=== PATIENT | male | born 1965 | race Hispanic/Latino ===

== ENCOUNTER 2017-07-31 16:27 | Inpatient (IN) | payer SELFPAY ==
[2017-07-31 16:50] LABS: #Basophils 0.1 thou/uL (0.0-0.2); #Eosinphils 0.2 thou/uL (0.0-0.7); #Lymphocytes 2.5 thou/uL (1.20-3.40); #Monocytes 0.9 thou/uL (0.11-0.59); #Neutrophils 6.9 thou/uL (1.40-6.50); %Basophils 0.9 % (0.0-1.0); %Monocytes 8.4 % (0.0-10.0); %Neutrophils 64.7 % (42.0-75.0); Hemoglobin 16.1 g/dL (14.0-18.0); Mean Corpuscular HGB CONC 35.9 g/dL (32.0-36.0); Mean Corpuscular Hemoglobin 31.9 pg (27.0-31.0); Mean Corpuscular Volume 88.8 fl (80.0-94.0); Platelet Count 277 thou/uL (130-400); RBC Distribution Width 12.6 % (11.5-14.5); Red Blood Cell (RBC) Count 5.03 mill/uL (4.70-6.10); White Blood Cell (WBC) Count 10.6 thou/uL (4.8-10.8)
--- NOTE | 2017-07-31 17:07 | RAD ---
CHEST ONE VIEW: 07/31/17 HISTORY: 52-year-old male with history of chest pain. COMPARISON: 08/18/15. Monitor leads overlie the chest. Heart size is within normal limits. Minimal atherosclerosis of the a vipul. Old granulomatous disease. Stable linear and chronic changes in the lung bases. IMPRESSION: Minimal stable chronic lung changes in the basis. Old granulomatous disease. Atherosclerosis of the a vipul. No acute process. POS: [facility]
[2017-07-31 17:17] LABS: ALT (SGPT) 31 U/L (8-55); AST (SGOT) 28 U/L (5-34); Albumin 4.4 g/dL (3.5-5.0); Alkaline Phosphatase 133 U/L (40-150); Anion Gap 13 mmol/L (10-20); BUN (Urea Nitrogen) 23 mg/dL (8.4-25.7); Bilirubin, Total 0.4 mg/dL (0.2-1.2); CK (CPK) 226 U/L (30-200); Calc. Creatinine Clearance 0 mL/min (70-130); Calcium 9.5 mg/dL (7.8-10.44); Carbon Dioxide 22 mmol/L (22-29); Chloride 106 mmol/L (98-107); Estimated GFR-MDRD 86; Glucose 104 mg/dL (70-105); Lipase 20 U/L (8-78); Potassium 4.3 mmol/L (3.5-5.1); Protein, Total 8.4 g/dL (6.0-8.3); Sodium 137 mmol/L (136-145)
[2017-07-31] MEDS ORDERED: Nitroglycerin 2% Ointment 1 INCH/1 GM Packet ONE (17:17)
[2017-07-31 17:34] LABS: CKMB 4.2 ng/mL (0-6.6); Troponin I 0.071 ng/mL (< 0.028)
[2017-07-31] MEDS ORDERED: EPINEPHrine 1 MG/ML AMP ONE (18:02)
[2017-07-31] MEDS ORDERED: methylPREDNISolone Sod Succ/PF 125 MG/2 ML VIAL ONE (18:02)
[2017-07-31] MEDS ORDERED: Enoxaparin Sodium 80 MG/0.8 ML SYRINGE ONE (19:02)
[2017-07-31] MEDS ORDERED: Morphine 4 MG/ML VIAL ONE (19:05)
[2017-07-31] MEDS ORDERED: Morphine 4 MG/ML VIAL SLOW IVP PRN (19:18)
[2017-07-31 20:09] LABS: Hemoglobin 15.8 g/dL (14.0-18.0); Mean Corpuscular HGB CONC 36.3 g/dL (32.0-36.0); Mean Corpuscular Hemoglobin 32.5 pg (27.0-31.0); Mean Corpuscular Volume 89.4 fl (80.0-94.0); Mean Platelet Volume 6.9 fL (7.4-10.4); Platelet Count 282 thou/uL (130-400); RBC Distribution Width 12.7 % (11.5-14.5); Red Blood Cell (RBC) Count 4.85 mill/uL (4.70-6.10); White Blood Cell (WBC) Count 8.9 thou/uL (4.8-10.8)
[2017-07-31 20:17] LABS: Anion Gap 16 mmol/L (10-20); BUN (Urea Nitrogen) 23 mg/dL (8.4-25.7); Calc. Creatinine Clearance 0 mL/min (70-130); Calcium 9.4 mg/dL (7.8-10.44); Carbon Dioxide 19 mmol/L (22-29); Chloride 107 mmol/L (98-107); Estimated GFR-MDRD 90; Glucose 140 mg/dL (70-105); Potassium 4.2 mmol/L (3.5-5.1); Sodium 138 mmol/L (136-145)
[2017-07-31 20:18] LABS: Band 1 % (5-11); Eosinophils 3 % (0-10); Lymphocytes 28 % (21-51); MDiff Complete? YES; Monocytes 5 % (0-10); Neutrophil 63 % (42-75); PLT Morphology Comment Appears Adequate; RBC Morphology Normal
[2017-07-31 20:30] LABS: CKMB 11.1 ng/mL (0-6.6); Troponin I 0.378 ng/mL (< 0.028)
[2017-07-31] MEDS ORDERED: Enoxaparin Sodium 80 MG/0.8 ML SYRINGE SC SCH (21:00)
[2017-07-31] MEDS: Famotidine 20 MG TAB PO SCH (22:38)
[2017-07-31] MEDS: Lisinopril 20 MG TAB PO SCH (22:38)
[2017-07-31] MEDS: Nicotine 14 MG PATCH TD SCH (22:44)
--- NOTE | 2017-07-31 23:22 | HP ---
PRIMARY CARE PHYSICIAN: [facility]. CHIEF COMPLAINT: Chest pain. HISTORY OF PRESENT ILLNESS: Patient is a very pleasant 52-year-old male with a history of hypertensi on, hypothyroidism and smoking, who presents to the hospital with complaints of chest pain. The rebecca ent states that he has been having chest pain for the past 2-3 months. However, today his chest pain intensity worsened. Patient denies any nausea and vomiting associated with the chest pain. Patient states that his chest pain is to the left sternal area of his chest, does not radiate to his jaw or bilateral extremities. The patient does complain of shortness of breath on exertion. The patient st ates that normally when he lifts heavy objects and walks around, he gets short of breath and also sta rts having chest tightness and when he stops, the chest pain and the shortness of breath improves. P atient denies any lower extremity swelling. However, he states that he does have PND positive. The patient's is at the bedside and states that he does snore at night and also stops breathing at t imes during the night. The patient stated that today he was helping his granddaughter to built lemon kerrie stand when he started feeling chest tightness which increased in intensity, followed by shortness of breath which made him come to the ER for further evaluation. Also, the patient stated that he wa s supposed to see a special needs librarian as an outpatient; however, could not afford the copay. PAST MEDICAL HISTORY: 1. Hypertension. 2. Hypothyroidism. 3. Hepatitis C. 4. Hepatitis A, looks like it is chronic. PAST SURGICAL HISTORY: He had I&D of his right lower foot. FAMILY HISTORY: His mother with brain tumor, also had some heart disease; however, his b iological brother at the age of 52 with a heart attack. The patient's stepbrother had a CABG at the age of 49-50. He has other two brothers, which he does not know their history. HOME MEDICATIONS: Are as the following; he takes lisinopril 20 mg daily, ranitidine 150 mg daily, as pirin 81 mg daily, Synthroid 0.025 mg daily. He also takes gemfibrozil 600 mg one b.i.d. ALLERGIES: He has no known drug allergies. SOCIAL HISTORY: He does smoke a pack a day. Denies any alcohol use currently; however, did drink in the past. He does have a history of cocaine or substance abuse in the past; however, currently he s tates he is drug free. REVIEW OF SYSTEMS: The following complete review of systems was negative, unless otherwise mentioned in the HPI or below: Constitutional: Weight loss or gain, ability to conduct usual activities. Skin: Rash, itching. Eyes: Double vision, pain. ENT/Mouth: Nose bleeding, neck stiffness, pain, tenderness. Cardiovascular: Palpitations, dyspnea on exertion, orthopnea. Respiratory: Shortness of breath, wheezing, cough, hemoptysis, fever or night sweats. Gastrointestinal: Poor appetite, abdominal pain, heartburn, nausea, vomiting, constipation, or diarr hea. Genitourinary: Urgency, frequency, dysuria, nocturia. Musculoskeletal: Pain, swelling. Neurologic/Psychiatric: Anxiety, depression. Allergy/Immunologic: Skin rash, bleeding tendency. All negative except for the ones mentioned in the HPI. PHYSICAL EXAMINATION: VITAL SIGNS: Patient's initial temperature was 98.8, respirations 20, pulse was 92, his initial bloo d pressure was 202/112; however, after recheck was 142/82. GENERAL: He is awake, alert, oriented x3, does not appear in distress. CARDIOVASCULAR: S1, S2 present. No murmurs, rubs or gallops. LUNGS: Clear to auscultation, rhonchi or wheezes noted. ABDOMEN: Soft, obese. Bowel sounds are present x2. No hepatomegaly or splenomegaly noted. Chest w all unable to reciprocate pain upon palpation. EXTREMITIES: No edema. Pedal pulses are present x2. SKIN: Patient has multiple tattoos all over. LABORATORY DATA AND IMAGING DATA: Laboratory results are as the following; WBCs of 10.6, hemoglobin 16.1, hematocrit 44.7, and platelets of 277. Chemistry araiza sodium of 137, potassium of 4.3, creatin ine 0.92, BUN of 23. His initial troponin 0.071. His D-dimer was negative. EKG, no ST elevation or depression noted. Chest x-ray no acute processes noted. ASSESSMENT AND PLAN: The patient is a very pleasant 52-year-old male who presents to the hospital wi th chest pain. 1. Oea-AP-hgdbruf elevation myocardial infarction. We will trend troponins additional x2, we will s tart the patient on Lovenox b.i.d. 2. Start the patient aspirin. 3. Most likely we will do a stress test in the morning. However, if troponins trying to worsen, may consult Cardiology. We will check patient's lipid level and we will start patient on statin. The p rojelio stated that he did have a stress test about 2 or 3 years ago which was negative at our hospita l. 4. Hypertension. The patient states he is compliant with his blood pressure medications. We will s ee if we can titrate his meds based on his blood pressure. 5. Smoking, patient advised against smoking cessation. 6. Hypothyroidism. We will continue the patient's Synthroid.
[2017-07-31 23:23] LABS: Troponin I 0.931 ng/mL (< 0.028)
[2017-07-31 23:50] VITALS: BMI 33.3
[2017-08-01] MEDS: Levothyroxine Sodium 25 MCG TAB PO SCH (05:51)
[2017-08-01] MEDS: Nitroglycerin 0.4 MG TAB (25 Tab Bottle) PO PRN (05:52)
[2017-08-01 06:39] LABS: Cardiac Risk 6.1 (Less than 4.5); Cholesterol 166 mg/dl (< 200 Desired); HDL Cholesterol 27 mg/dL (>60 Neg Risk); Triglycerides 609 mg/dL (Less than 150)
[2017-08-01] MEDS: Enoxaparin Sodium 80 MG/0.8 ML SYRINGE SC SCH ×2 (08:53→20:51)
[2017-08-01] MEDS: Gemfibrozil 600 MG TAB PO SCH ×2 (08:53→17:03)
[2017-08-01] MEDS: Famotidine 20 MG TAB PO SCH ×2 (08:53→20:50)
[2017-08-01] MEDS: Lisinopril 20 MG TAB PO SCH ×2 (08:53→20:50)
[2017-08-01] MEDS: Aspirin 325 MG TAB PO SCH (08:53)
--- NOTE | 2017-08-01 12:27 | PDOC.PN ---
- Subjective Encounter Start Date: 08/01/17 Encounter Start Time: 08:20 Pt seen for followup re: NSTEMI. Denies chest pain, reports not sleeping well. Denies fevers or chills. - Objective MAR Reviewed: Yes Vital Signs & Weight: Vital Signs (12 hours) Temp Pulse Resp BP Pulse Ox 08/01/17 11:10 98.4 F 77 16 136/84 97 08/01/17 07:20 98.4 F 78 16 133/74 97 08/01/17 05:22 98.3 F 86 20 124/73 96 Weight Weight 188 lb 8 oz Result Diagrams: 07/31/17 19:52 07/31/17 19:52 EKG Reviewed by me: Yes (tele: NSR) Phys Exam - Physical Examination Constitutional: NAD HEENT: moist MMs, sclera anicteric, oral pharynx no lesions, 2+ tonsils Neck: no nodes, no JVD, supple, full ROM Respiratory: no wheezing, no rales, no rhonchi, clear to auscultation bilateral Cardiovascular: RRR, no rub S1, S2 Gastrointestinal: soft, non-tender, no distention, positive bowel sounds Neurological: moves all 4 limbs Psychiatric: normal affect, A&O x 3 Dx/Plan (1) NSTEMI (non-ST elevated myocardial infarction) Code(s): I21.4 - NON-ST ELEVATION (NSTEMI) MYOCARDIAL INFARCTION Status: Acute Comment: continue aspirin, enoxaparin (2) Insomnia Code(s): G47.00 - INSOMNIA, UNSPECIFIED Status: Acute Comment: start melatonin PRN (3) HLD (hyperlipidemia) Code(s): E78.5 - HYPERLIPIDEMIA, UNSPECIFIED Status: Chronic Comment: continue gemfibrozil, start statin (4) HTN (hypertension) Code(s): I10 - ESSENTIAL (PRIMARY) HYPERTENSION Status: Chronic Comment: Monitor vital signs, titrate antihypertensives as needed (5) Tobacco abuse Code(s): Z72.0 - TOBACCO USE Status: Chronic Comment: counseled re: tobacco cessation, continue nicotine replacement therapy - Plan * . Review of Systems - Review of Systems Constitutional: other (Insomnia). negative: fever, chills, sweats, weakness, malaise Respiratory: negative: Cough, Shortness of Breath, SOB with Excertion, Pleuritic Pain, Wheezing Cardiovascular: negative: chest pain, palpitations, orthopnea, paroxysmal nocturnal dyspnea, edema, light headedness Gastrointestinal: negative: Nausea, Vomiting, Abdominal Pain, Diarrhea, Constipation, Melena, Hematochezia Genitourinary: negative: Dysuria, Frequency, Incontinence, Hematuria, Retention Skin: negative: Rash, Lesions, Armond, Bruising - Medications/Allergies Allergies/Adverse Reactions: Allergies Allergy/AdvReac Type Severity Reaction Status Date / Time No Known Drug Allergies Allergy Verified 08/19/15 00:26 Medications: Current Medications Aspirin (Aspirin) 325 mg PO DAILY [facility] Last Admin: 08/01/17 08:53 Dose: 325 mg Enoxaparin Sodium (Lovenox) 70 mg SC 0900,2100 [facility] Last Admin: 08/01/17 08:53 Dose: 70 mg Famotidine (Pepcid) 20 mg PO BID [facility] Last Admin: 08/01/17 08:53 Dose: 20 mg Gemfibrozil (Lopid) 600 mg PO BID[facility] Last Admin: 08/01/17 08:53 Dose: 600 mg Levothyroxine Sodium (Synthroid) 25 mcg PO 0600 [facility] Last Admin: 08/01/17 05:51 Dose: 25 mcg Lisinopril (Zestril) 20 mg PO BID [facility] Last Admin: 08/01/17 08:53 Dose: 20 mg Melatonin (Melatonin) 3 mg PO HSPRN PRN PRN Reason: Insomnia Morphine Sulfate (Morphine) 2 mg SLOW IVP Q4H PRN PRN Reason: Chest Pain Nicotine (Nicoderm Patch) 14 mg TD Q24HR [facility] Last Admin: 07/31/17 22:44 Dose: 14 mg Nitroglycerin (Nitrostat) 0.4 mg PO Q5MIN PRN PRN Reason: Chest Pain Last Admin: 08/01/17 05:52 Dose: 0.4 mg Sodium Chloride (Flush - Normal Saline) 10 ml IVF Q12HR [facility] Sodium Chloride (Flush - Normal Saline) 10 ml IVF PRN PRN PRN Reason: Saline Flush
[2017-08-01 16:34] LABS: Medtox Reader # READER 4
[2017-08-01 16:35] LABS: Amphetamine Not Detected (NotDetected); Barbiturates Screen Not Detected (NotDetected); Benzodiazepine Screen Not Detected (NotDetected); Cocaine Metabolite Screen Not Detected (NotDetected); Medtox Control Line Valid? VALID (VALID); Methadone Not Detected (NotDetected); Methamphetamine Not Detected (NotDetected); Opiate Screen Detected (NotDetected); Oxycodone Screen Not Detected (NotDetected); Phencyclidine (PCP) Not Detected (NotDetected); THC/Cannabinoid Screen Not Detected (NotDetected); Tricyclic Screen Detected (NotDetected)
--- NOTE | 2017-08-01 16:59 | CON ---
DATE OF CONSULTATION: 08/01/2017 REASON FOR CONSULTATION: NSTEMI. HISTORY OF PRESENT ILLNESS: Mr. Kearns is a very pleasant 52-year-old gentleman who comes t o the hospital for complaints of chest pain. He was ruled in with a troponin going into the positive range, so Cardiology is being consulted for this. He tells me that he has noted for the last 2-3 mo nt that any activity that he does outside within 5 or 10 minutes, he is going to get short-winded a nd feel chest tightness, so he has to stop. He has not been doing a lot of work outside due to this. Yesterday, he was helping his daughter build lemonade stand and felt the chest tightness which was worse than before and only got worse, so he decided to come in for further evaluation. Currently, he is chest pain free. PAST MEDICAL HISTORY: 1. Hypertension. 2. Hypothyroidism. 3. Hepatitis C. 4. Hepatitis A. PAST SURGICAL HISTORY: Right lower foot incision and drainage. OUTPATIENT MEDICATIONS: Include, 1. Lisinopril 20 mg a day. 2. Ranitidine 150 mg daily. 3. Aspirin 81 a day. 4. Synthroid 25 mcg a day. 5. Gemfibrozil 600 mg b.i.d. ALLERGIES: No known drug allergies. FAMILY HISTORY: Brother had IN in his late 40s. Another brother at age 52 of a heart attack. SOCIAL HISTORY: Smokes a pack a day. No alcohol use recently, but he did in the past. He does have a history of cocaine and substance abuse in the past, but none for the last 2 years. REVIEW OF SYSTEMS: A 12-point review of systems was done and is all negative unless stated in the hi story of present illness. PHYSICAL EXAMINATION: VITAL SIGNS: Temperature 98.4, pulse 77, respiration rate 16, satting 97% on room air, blood pressur e 136/84. GENERAL: Awake, alert, oriented x3, in no distress. HEENT: Normocephalic, atraumatic. NECK: Supple. LUNGS: Clear. CARDIOVASCULAR: S1, S2, no S3, S4, no murmurs or rubs. ABDOMEN: Soft, positive bowel sounds. EXTREMITIES: No edema. SKIN: Warm and dry. LABORATORY WORK: Reviewed. CBC is unremarkable. Coags, D-dimer is less than assay limit. Chemistr ies are unremarkable. GFR is above 90. Glucose was 140. Troponin went from 0.07 to 0.37 to 0.93. CK-MB went from 4.2-11.1. BNP was 11.6, triglycerides of 609, cholesterol total of 166, LDL cannot b e measured given the high triglycerides and HDL of 27. Lipase was 20. Albumin of 4.4. Echocardiogram from earlier today was reviewed, EF of 60-65%, 1/3 diastolic dysfunction, mild MR, mil d TR. ASSESSMENT AND PLAN: 1. Non-ST elevation myocardial infarction. 2. Tobacco abuse. 3. Hypertension. PLAN: Further risk stratification with heart catheterization is warranted. I spoke with him at [facility] about the risks and benefits of the procedure, risks including, but not limited to stroke, [place], vickey th, bleeding and need for blood transfusion, limb loss, organ loss, contrast reactions, renal insuffi ciency from contrast. Patient understands and verbalized understanding of this and agrees to proceed . Bare metal stents if needed given poor access to care. Further recommendation results of coronary angiogram.
[2017-08-01] MEDS: Atorvastatin Calcium 20 MG TAB PO SCH (20:50)
[2017-08-01] MEDS: Nicotine 14 MG PATCH TD SCH (20:55)
[2017-08-01] MEDS: Melatonin 3 MG TAB PO PRN (20:55)
[2017-08-02] MEDS: Levothyroxine Sodium 25 MCG TAB PO SCH (05:25)
[2017-08-02] MEDS ORDERED: Iopamidol 370 76% 100 ML VIAL ONE (06:47)
[2017-08-02] MEDS: Lisinopril 20 MG TAB PO SCH (08:43)
[2017-08-02] MEDS: Gemfibrozil 600 MG TAB PO SCH ×2 (08:44→17:59)
[2017-08-02] MEDS: Famotidine 20 MG TAB PO SCH ×2 (08:44→21:53)
[2017-08-02] MEDS: Enoxaparin Sodium 80 MG/0.8 ML SYRINGE SC SCH ×2 (08:44→21:52)
[2017-08-02] MEDS: Nitroglycerin 0.4 MG TAB (25 Tab Bottle) PO PRN ×3 (09:33→15:32)
[2017-08-02] MEDS ORDERED: HEPATITIS B VIRUS VACCINE IM SCH (10:15)
[2017-08-02] MEDS ORDERED: Lidocaine 1% (PF) 30 ML VIAL ONE (10:22)
[2017-08-02] MEDS: Aspirin 325 MG TAB PO SCH (10:26)
[2017-08-02] MEDS ORDERED: Midazolam HCl 2 mg/2 ml Vial ONE (10:57)
[2017-08-02] MEDS ORDERED: Fentanyl 100 MCG/2 ML VIAL ONE (10:57)
--- NOTE | 2017-08-02 13:18 | PDOC.PN ---
- Subjective Encounter Start Date: 08/02/17 Encounter Start Time: 09:20 Pt seen for followup re: NSTEMI. Denies chest pain, shortness of breath, fevers or chills. - Objective MAR Reviewed: Yes Vital Signs & Weight: Vital Signs (12 hours) Temp Pulse Resp BP BP BP Pulse Ox 08/02/17 11:38 98.2 F 81 17 108/75 96 08/02/17 08:43 126/73 08/02/17 08:37 97.4 F L 83 18 113/80 96 Weight Weight 188 lb 8 oz Result Diagrams: 07/31/17 19:52 07/31/17 19:52 Phys Exam - Physical Examination Obesity HEENT: moist MMs, sclera anicteric, oral pharynx no lesions, 2+ tonsils Neck: supple Respiratory: no wheezing, no rales, no rhonchi, clear to auscultation bilateral Cardiovascular: RRR, no rub S1, S2, reg Gastrointestinal: soft, non-tender, no distention, positive bowel sounds Neurological: moves all 4 limbs Psychiatric: normal affect, A&O x 3 Dx/Plan (1) NSTEMI (non-ST elevated myocardial infarction) Code(s): I21.4 - NON-ST ELEVATION (NSTEMI) MYOCARDIAL INFARCTION Status: Acute Comment: continue aspirin, enoxaparin. For cath today (2) Insomnia Code(s): G47.00 - INSOMNIA, UNSPECIFIED Status: Acute Comment: continue PRN melatonin (3) HLD (hyperlipidemia) Code(s): E78.5 - HYPERLIPIDEMIA, UNSPECIFIED Status: Chronic Comment: continue gemfibrozil and statin (4) HTN (hypertension) Code(s): I10 - ESSENTIAL (PRIMARY) HYPERTENSION Status: Chronic Comment: titrate antihypertensives as needed (5) Tobacco abuse Code(s): Z72.0 - TOBACCO USE Status: Chronic Comment: continue nicotine replacement therapy - Plan * . Review of Systems - Review of Systems Respiratory: negative: Cough, Shortness of Breath, SOB with Excertion, Pleuritic Pain, Wheezing Cardiovascular: negative: chest pain, palpitations, orthopnea, paroxysmal nocturnal dyspnea, edema, light headedness Gastrointestinal: negative: Nausea, Vomiting, Abdominal Pain, Diarrhea, Constipation, Melena, Hematochezia Musculoskeletal: Back Pain. negative: Neck Pain, Shoulder Pain, Arm Pain, Hand Pain, Leg Pain, Foot Pain Skin: negative: Rash, Lesions, Armond, Bruising Neurological: negative: Weakness, Numbness, Incoordination, Change in Speech, Confusion, Seizures - Medications/Allergies Allergies/Adverse Reactions: Allergies Allergy/AdvReac Type Severity Reaction Status Date / Time No Known Drug Allergies Allergy Verified 08/19/15 00:26 Medications: Current Medications Aspirin (Aspirin) 325 mg PO DAILY [facility] Last Admin: 08/02/17 10:26 Dose: Not Given Atorvastatin Calcium (Lipitor) 20 mg PO HS [facility] Last Admin: 08/01/17 20:50 Dose: 20 mg Enoxaparin Sodium (Lovenox) 70 mg SC 0900,2100 [facility] Last Admin: 08/02/17 08:44 Dose: Not Given Famotidine (Pepcid) 20 mg PO BID [facility] Gemfibrozil (Lopid) 600 mg PO BIDAC [facility] Hepatitis B Vaccine (Engerix-B 20 Mcg/Ml Vial) 20 mcg IM ONE [facility] Stop: 08/02/17 21:00 Levothyroxine Sodium (Synthroid) 25 mcg PO DAILY [facility] Lisinopril (Zestril) 10 mg PO DAILY [facility] Melatonin (Melatonin) 3 mg PO HSPRN PRN PRN Reason: Insomnia Last Admin: 08/01/17 20:55 Dose: 3 mg Morphine Sulfate (Morphine) 2 mg SLOW IVP Q4H PRN PRN Reason: Chest Pain Nicotine (Nicoderm Patch) 14 mg TD Q24HR [facility] Last Admin: 08/01/17 20:55 Dose: 14 mg Nitroglycerin (Nitrostat) 0.4 mg PO Q5MIN PRN PRN Reason: Chest Pain Last Admin: 08/02/17 09:33 Dose: 0.4 mg Sodium Chloride (Flush - Normal Saline) 10 ml IVF Q12HR [facility] Last Admin: 08/02/17 08:44 Dose: 10 ml Sodium Chloride (Flush - Normal Saline) 10 ml IVF PRN PRN PRN Reason: Saline Flush
[2017-08-02] MEDS ORDERED: Acetaminophen/Codeine 30-300mg Tablet PO PRN (13:25)
[2017-08-02] MEDS ORDERED: Sodium Chloride 0.9% 200 ML IV SCH (13:30)
[2017-08-02] MEDS ORDERED: Sodium Chloride 0.9% 1,000 ML IV SCH (13:30)
[2017-08-02] MEDS: traMADol HCl 50 MG TAB PO PRN ×2 (15:11→21:58)
[2017-08-02] MEDS ORDERED: Non-Formulary Item 1 EACH (Ranitidine Hcl [Ranitidine Hcl] 150 MG) PO SCH (21:00)
[2017-08-02] MEDS: Nicotine 14 MG PATCH TD SCH (21:53)
[2017-08-02] MEDS: Atorvastatin Calcium 20 MG TAB PO SCH (21:53)
[2017-08-02] MEDS: Melatonin 3 MG TAB PO PRN (21:58)
[2017-08-03] MEDS ORDERED: [UNRECOGNIZED DRUG - REMARK] FS SCH (08:10)
[2017-08-03] MEDS: Gemfibrozil 600 MG TAB PO SCH ×2 (08:33→18:07)
[2017-08-03] MEDS: Lisinopril 10 MG TAB PO SCH (08:33)
[2017-08-03] MEDS: Aspirin 325 MG TAB PO SCH (08:33)
[2017-08-03] MEDS: Famotidine 20 MG TAB PO SCH ×2 (08:33→20:42)
[2017-08-03] MEDS: Enoxaparin Sodium 80 MG/0.8 ML SYRINGE SC SCH ×2 (08:34→20:42)
[2017-08-03] MEDS ORDERED: Levothyroxine Sodium 25 MCG TAB PO SCH (09:00)
[2017-08-03] MEDS ORDERED: Lisinopril 10 MG TAB PO SCH (09:00)
--- NOTE | 2017-08-03 10:31 | CON ---
DATE OF CONSULTATION: 08/03/2017 REQUESTING PHYSICIAN: Dr. Sheffield, Primary Care [facility]. CHIEF COMPLAINT: Chest pain. HISTORY OF PRESENT ILLNESS: The patient is a 52-year-old man with hypertension and strongly positive family history of premature coronary disease. For 2-3 months, he has been having exertiona l chest pain with mild exertion. Over the weekend, he was helping his granddaughter to build a lemon kerrie stand and while he hit it from her, he began having chest pain that was more severe and more prot racted than typical, and when he was through, he presented to the emergency. By then, he was beginni ng to have some shortness of breath and while his initial troponin was normal, his follow up troponin was positive. He has had an uncomplicated post-infarction course. PAST MEDICAL HISTORY: Significant for hypertension, hypothyroidism, hepatitis C and by report chroni c hepatitis A. HOME MEDICATIONS: Ranitidine 150 mg b.i.d., Synthroid 25 mcg a day, gemfibrozil 600 mg b.i.d., baby aspirin a day, lisinopril 120 mg a day, Motrin 600 mg b.i.d. and he is undergoing hepatitis B vaccina tions and here he has been started on adult aspirin a day, Lipitor 20 mg at bedtime in addition to hi s gemfibrozil, Pepcid 20 mg b.i.d., he has been continued on Synthroid. His lisinopril has been put 10 mg a day. He is on a 70 mg b.i.d. of Lovenox and he is on Nicoderm patch. SOCIAL HISTORY: The patient is a long-term smoker. He has past history of abuse of cocaine, methamp hetamines and marijuana. He denies use of opioids. FAMILY HISTORY: Significant for his father dying at age 52 of heart attack. The patient has multipl e siblings with coronary artery disease, one of whom is in the last couple of years undergone coronar y bypass surgery. The patient denies any medical allergies. REVIEW OF SYSTEMS: Negative for any transient eye, speech, facial or extremity symptoms to suggest T IAs. Negative for any shortness of breath other than that associated with his current presentation. PHYSICAL EXAMINATION: GENERAL: He is a lawton appearing man with multiple tattoos. VITAL SIGNS: Heart rate is 81, blood pressure 108/75, temperature 98.2, he stands 5 foot 3 inches ta ll and weighs 188.5 pounds. HEENT: He has no xanthelasma. NECK: No JVD, no carotid bruits. CHEST: Clear to auscultation. He has regular rate and rhythm without obvious murmur or gallop. ABDOMEN: Soft and nontender. EXTREMITIES: He has easily palpable radial, dorsalis pedis, and posterior tibial pulses bilaterally. The patient states that he is right hand dominant. His left hand has normal Pranay's test. He has no obvious varicosities. No clubbing, cyanosis or edema. NEUROLOGIC: Grossly nonfocal. IMAGING DATA AND LABORATORY DATA: His chest x-ray showed some mild edema. Laboratory exam showed he moglobin of 16.1, white count of 10.6 and platelets 277,000. Electrolytes are normal. Glucose 104, BUN 23, creatinine 0.92, bilirubin 0.4, alkaline phosphatase 133, AST 28, ALT 31, protein 8.4, albumi n 4.4, calcium 9.5. Initial CPK was 226, MB was 4.2 and troponin 0.71 with BNP of 11.6. Follow up t roponin about 3 hours later was 0.378 and then 3 hours after that was 0.931. Fasting lipids showed t riglyceride of 609 and total cholesterol of 166, HDL was 27. LDL determination was not done because of interference from the high triglycerides. His cardiac catheterization shows what appears to be a right dominant system with an occluded right and left to right filling of diseased distal vessel. It is not entirely clear whether it is posterolateral or posterior descending branch that is filling. He has a very high grade ostial LAD lesion and a couple of approximately diseased diagonals that are isolated by mid LAD lesion. One of those diagonals seems reasonable size, but the other seems pretty small. Has about a 70%-80% lesion and a modest sized OM1 and a long 20% or 30% lesion in the circum flex proper leading to a much larger distal OMs, LVEF is around 70%. Aortic pressure was 104/66 with a mean of 85 and 112/71 with a mean of 90. LV pressures were 104/4 with an EDP of 12 and 108/4 with an EDP of 14 respectively. IMPRESSION AND RECOMMENDATIONS: Three-vessel coronary artery disease with the most compelling issue being a very high grade ostial LAD lesion. We will plan on surgical revascularization. I have discu ssed with patient and his family revascularization options including radial artery harvest.
--- NOTE | 2017-08-03 12:42 | PDOC.PN ---
- Subjective Encounter Start Date: 08/03/17 Encounter Start Time: 08:20 Pt seen for followup re: NSTEMI. Denies chest pain, shortness of breath, fevers or chills. - Objective Vital Signs & Weight: Vital Signs (12 hours) Temp Pulse Resp BP BP Pulse Ox 08/03/17 12:27 97.7 F 79 17 158/98 H 97 08/03/17 08:35 98.1 F 83 15 131/85 94 L 08/03/17 08:33 126/73 08/03/17 03:52 98.4 F 82 18 128/76 Weight Weight 188 lb 8 oz Result Diagrams: 08/04/17 15:58 08/04/17 15:58 Phys Exam - Physical Examination Obese HEENT: moist MMs, sclera anicteric, oral pharynx no lesions, 2+ tonsils Neck: no nodes, no JVD, supple, full ROM Respiratory: no wheezing, no rales, no rhonchi, clear to auscultation bilateral Cardiovascular: RRR, no rub S1, S2 Gastrointestinal: soft, non-tender, no distention, positive bowel sounds Neurological: moves all 4 limbs Psychiatric: normal affect, A&O x 3 Deviation from normal: tattoos Dx/Plan (1) NSTEMI (non-ST elevated myocardial infarction) Code(s): I21.4 - NON-ST ELEVATION (NSTEMI) MYOCARDIAL INFARCTION Status: Acute Comment: s/p CABG for multivessel CAD (2) HLD (hyperlipidemia) Code(s): E78.5 - HYPERLIPIDEMIA, UNSPECIFIED Status: Chronic Comment: continue statin and gemfibrozil (3) Tobacco abuse Code(s): Z72.0 - TOBACCO USE Status: Chronic Comment: continue nicotine replacement therapy (4) HTN (hypertension) Code(s): I10 - ESSENTIAL (PRIMARY) HYPERTENSION Status: Chronic Comment: BP on lower side at this time, titrate antihypertensives as needed (5) Insomnia Code(s): G47.00 - INSOMNIA, UNSPECIFIED Status: Acute Comment: continue PRN melatonin - Plan * . Review of Systems - Review of Systems Constitutional: negative: fever, chills, sweats, weakness, malaise Respiratory: negative: Cough, Shortness of Breath, SOB with Excertion, Pleuritic Pain, Wheezing Cardiovascular: negative: chest pain, palpitations, orthopnea, paroxysmal nocturnal dyspnea, edema, light headedness Skin: negative: Rash, Lesions, Armond, Bruising Neurological: negative: Weakness, Numbness, Incoordination, Change in Speech, Confusion, Seizures - Medications/Allergies Allergies/Adverse Reactions: Allergies Allergy/AdvReac Type Severity Reaction Status Date / Time No Known Drug Allergies Allergy Verified 08/19/15 00:26 Medications: Current Medications Acetaminophen/Codeine Phosphate (Tylenol #3) 1 tab PO Q4H PRN PRN Reason: Mild Pain (1-3) Stop: 08/04/17 08:30 Aspirin (Aspirin) 325 mg PO DAILY [facility] Stop: 08/04/17 08:30 Last Admin: 08/03/17 08:33 Dose: 325 mg Atorvastatin Calcium (Lipitor) 20 mg PO HS [facility] Stop: 08/04/17 08:30 Last Admin: 08/02/17 21:53 Dose: 20 mg Enoxaparin Sodium (Lovenox) 70 mg SC 0900,2100 [facility] Stop: 08/04/17 08:00 Last Admin: 08/03/17 08:34 Dose: 70 mg Famotidine (Pepcid) 20 mg PO BID [facility] Stop: 08/04/17 08:30 Last Admin: 08/03/17 08:33 Dose: 20 mg Gemfibrozil (Lopid) 600 mg PO BIDAC [facility] Stop: 08/04/17 08:30 Last Admin: 08/03/17 08:33 Dose: 600 mg Levothyroxine Sodium (Synthroid) 25 mcg PO DAILY [facility] Stop: 08/04/17 08:30 Last Admin: 08/03/17 08:33 Dose: 25 mcg Lisinopril (Zestril) 10 mg PO DAILY [facility] Last Admin: 08/03/17 08:33 Dose: 10 mg Melatonin (Melatonin) 3 mg PO HSPRN PRN PRN Reason: Insomnia Stop: 08/04/17 08:30 Last Admin: 08/02/17 21:58 Dose: 3 mg Miscellaneous Information (Communication Order-Pharmacy) 1 each FS ONE [facility] Stop: 08/04/17 12:00 Morphine Sulfate (Morphine) 2 mg SLOW IVP Q4H PRN PRN Reason: Chest Pain Stop: 08/04/17 08:30 Nicotine (Nicoderm Patch) 14 mg TD Q24HR [facility] Stop: 08/04/17 08:30 Last Admin: 08/02/17 21:53 Dose: 14 mg Nitroglycerin (Nitrostat) 0.4 mg PO Q5MIN PRN PRN Reason: Chest Pain Stop: 08/04/17 08:30 Last Admin: 08/02/17 15:32 Dose: 0.4 mg Sodium Chloride (Flush - Normal Saline) 10 ml IVF Q12HR [facility] Last Admin: 08/02/17 22:04 Dose: 10 ml Sodium Chloride (Flush - Normal Saline) 10 ml IVF PRN PRN PRN Reason: Saline Flush Tramadol HCl (Ultram) 50 mg PO Q6H PRN PRN Reason: Moderate Pain (4-6) Stop: 08/04/17 08:30 Last Admin: 08/02/17 21:58 Dose: 50 mg
--- NOTE | 2017-08-03 18:37 | PDOC.CTH ---
Cardiology Progress Note - Subjective He is doing well. No chest pain, tightness, pressure. - Objective Vital Signs Temp Pulse Resp BP BP Pulse Ox 08/03/17 15:47 98.4 F 86 17 142/86 H 96 08/03/17 12:27 97.7 F 79 17 158/98 H 97 08/03/17 08:35 97.7 F 79 17 131/85 94 L 08/03/17 08:33 126/73 Weight 188 lb 8 oz 08/02/17 08/03/17 08/04/17 06:59 06:59 06:59 Intake Total 960 Output Total 1025 Balance -65 - Physical Examination General/Neuro: alert & oriented x3, NAD Neck: no JVD present Lungs: CTA, unlabored respirations Heart: RRR Abdomen: NT/ND Extremities: other: (no edema.) - Telemetry Telemetry Rhythm: NSR - Labs Result Diagrams: 07/31/17 19:52 07/31/17 19:52 Troponin/CKMB CK-MB (CK-2) 11.1 ng/mL (0-6.6) H* 07/31/17 19:58 Troponin I 0.931 ng/mL (< 0.028) H* 07/31/17 22:45 - Assessment/Plan 1. NSTEMI 2. Multivessel CAD 3. HTN 4. Tobacco abuse. 5. Hepatitis C. PLAN: - For CABG tomorrow. - Aspirin and statin for life.
[2017-08-03] MEDS: traMADol HCl 50 MG TAB PO PRN (20:41)
[2017-08-03] MEDS: Atorvastatin Calcium 20 MG TAB PO SCH (20:42)
[2017-08-03] MEDS: Nicotine 14 MG PATCH TD SCH (20:42)
[2017-08-03] MEDS: Melatonin 3 MG TAB PO PRN (20:42)
[2017-08-04] MEDS ORDERED: CEFAZOLIN/Water 2 GM/20 ML SYRINGE SLOW IVP SCH (02:00)
[2017-08-04] MEDS: Gemfibrozil 600 MG TAB PO SCH ×2 (05:21→16:32)
[2017-08-04] MEDS: Lisinopril 10 MG TAB PO SCH (05:21)
[2017-08-04] MEDS ORDERED: CEFAZOLIN/Water 2 GM/20 ML SYRINGE ONE (08:00)
[2017-08-04] MEDS ORDERED: Fentanyl 250 MCG/5 ML VIAL ONE (09:28)
[2017-08-04] MEDS ORDERED: Midazolam HCl 5 mg/5 ml Vial ONE (09:28)
[2017-08-04] MEDS ORDERED: Midazolam HCl 2 mg/2 ml Vial ONE (09:29)
[2017-08-04] MEDS ORDERED: Heparin 10,000 UNITS/1 ML VIAL 30,000 UNITS in Sodium Chloride 0.9% 1,000 ML FS SCH (10:30)
[2017-08-04] MEDS ORDERED: Rocuronium Bromide 50 MG/5 ML VIAL ONE ×2 (11:28→13:59)
[2017-08-04] MEDS ORDERED: PHENYLEPHRINE-NS 100 MCG/ML 10 ML SYRINGE ONE ×2 (12:37→14:57)
[2017-08-04] MEDS ORDERED: Insulin Regular 300 UNITS/3 ML VIAL ONE (13:46)
[2017-08-04] MEDS ORDERED: Norepinephrine 8 MG/0.9% NS 250 ML ONE (14:56)
[2017-08-04] MEDS ORDERED: Heparin 30,000 units/30 ml VIAL ONE (14:57)
[2017-08-04] MEDS ORDERED: Protamine Sulfate 250 MG/25 ML VIAL ONE (14:57)
[2017-08-04] MEDS ORDERED: Cardioplegic Soln 1,000 ML BAG ONE (14:57)
[2017-08-04] MEDS ORDERED: Sodium Bicarb 50 MEQ/50 ML VIAL ONE (14:57)
[2017-08-04] MEDS ORDERED: Nitroglycerin 50 MG/250 ML BOT ONE (14:57)
[2017-08-04] MEDS ORDERED: Lidocaine 1% PF 5 ML VIAL ONE (14:57)
[2017-08-04] MEDS ORDERED: Magnesium 5 GM/10 ML VIAL ONE (14:57)
[2017-08-04] MEDS ORDERED: Calcium Chloride 1 GM/10 ML Abboject SYRINGE ONE (14:57)
[2017-08-04] MEDS ORDERED: PROPOFOL 200 MG/20 ML VIAL ONE (14:57)
[2017-08-04] MEDS ORDERED: Potassium Chloride 60 MEQ/30 ML VIAL ONE (14:57)
[2017-08-04] MEDS ORDERED: Heparin 5,000 UNITS/ML VIAL ONE (14:57)
[2017-08-04] MEDS ORDERED: DOPamine 400 MG/10 ML VIAL ONE (14:57)
[2017-08-04] MEDS ORDERED: Aminocaproic Acid 5 GM/20 ML VIAL ONE (14:57)
[2017-08-04] MEDS ORDERED: Dextrose 50% Abboject 50 ML SYRINGE ONE (14:57)
[2017-08-04] MEDS ORDERED: Lidocaine 2% PF 100 mg/5 ml Syringe ONE (14:57)
[2017-08-04] MEDS ORDERED: Papaverine 60 MG/2 ML VIAL ONE (14:57)
[2017-08-04] MEDS ORDERED: Mag-Al 1200 mg/1200 mg/30 ML UDCUP PO PRN (15:40)
[2017-08-04] MEDS ORDERED: Acetaminophen 325 MG TAB PO PRN (15:40)
[2017-08-04] MEDS ORDERED: Fentanyl 100 MCG/2 ML VIAL SLOW IVP PRN (15:40)
[2017-08-04] MEDS ORDERED: Bisacodyl 5 MG TAB PO PRN (15:40)
[2017-08-04] MEDS ORDERED: Morphine 4 MG/ML VIAL SLOW IVP PRN (15:40)
[2017-08-04] MEDS ORDERED: Hetastarch 6% 500 ML 500 ML IVPB PRN (15:40)
[2017-08-04] MEDS ORDERED: Nitroglycerin 50 MG/250 ML BOT 250 ML IVPB PRN (15:40)
[2017-08-04] MEDS ORDERED: Bisacodyl 10 MG SUPP PR PRN (15:40)
[2017-08-04] MEDS ORDERED: HYDROcodone/Acetaminophen 5/325 mg Tablet PO PRN (15:40)
[2017-08-04] MEDS ORDERED: Norepinephrine 8 MG/0.9% NS 250 ML IVPB PRN (15:40)
[2017-08-04] MEDS ORDERED: Promethazine HCl 25 MG/ML VIAL IM PRN (15:40)
[2017-08-04] MEDS ORDERED: Guaifenesin DM 100-10/5 ML UDCUP PO PRN (15:40)
[2017-08-04] MEDS ORDERED: hydrALAZINE 20 MG/ML VIAL SLOW IVP PRN (15:40)
[2017-08-04] MEDS ORDERED: Post-Op Insulin Drip Protocol IVPB ONE (15:40)
[2017-08-04] MEDS ORDERED: niCARdipine HCl 25 MG in Sodium Chloride 0.9% 250 ML 240 ML IVPB PRN (15:40)
[2017-08-04] MEDS ORDERED: Potassium Chloride 20 MEQ/100 ML PREMIX BAG IVPB PRN (15:40)
[2017-08-04] MEDS ORDERED: Ondansetron HCl/PF 4 MG/2 ML Vial IVP PRN (15:40)
[2017-08-04] MEDS ORDERED: Dextrose 5% in Water 1,000 ML IV PRN (15:55)
[2017-08-04] MEDS ORDERED: Dextrose 50% Abboject 50 ML SYRINGE SLOW IVP PRN (15:55)
[2017-08-04 16:09] LABS: Actual Bicarbonate (HCO3a) 22.8 mEq/L (22-26); Base Excess (BEa) -3.1 mEq/L (0 (+/-) 2.5); CO2 Tension 44.1 mmHg (35.0-45.0); O2 Tension (PaO2) 155.6 mmHg (80.0-100.0); pH, Arterial 7.33 (7.35-7.45)
[2017-08-04 16:10] LABS: Calcium, Ionized 1.2 mmol/L (1.12-1.30); Hematocrit-ABG 39.6 % (42.0-52.0); Hemoglobin (Hb) 13.6 g/dL (14.0-18.0); Puncture Site LINE
[2017-08-04 16:11] LABS: ALV-art Gradient 217.075 (0-20)
[2017-08-04 16:17] LABS: INR-International Normal Ratio 1.2; PTT 33.4 SEC (22.9-36.1); Prothrombin Time 15.1 SEC (12.0-14.7)
[2017-08-04] MEDS: Sodium Chloride 0.9% 1,000 ML IV SCH (16:24)
[2017-08-04 16:27] LABS: Anion Gap 11 mmol/L (10-20); BUN (Urea Nitrogen) 19 mg/dL (8.4-25.7); Calc. Creatinine Clearance 121 mL/min (70-130); Carbon Dioxide 20 mmol/L (22-29); Chloride 111 mmol/L (98-107); Estimated GFR-MDRD Greater than 90; Glucose 126 mg/dL (70-105); Potassium 4.6 mmol/L (3.5-5.1); Sodium 137 mmol/L (136-145)
[2017-08-04] MEDS: Nicotine 14 MG PATCH TD SCH ×3 (16:32→17:57)
--- NOTE | 2017-08-04 16:33 | PDOC.PN ---
- Subjective Encounter Start Date: 08/04/17 Encounter Start Time: 16:31 Pt seen for followup re: NSTEMI. Intubated, unable to complete ROS. - Objective MAR Reviewed: Yes Vital Signs & Weight: Vital Signs (12 hours) Pulse Resp BP BP 08/04/17 16:00 12 08/04/17 15:49 94 111/61 08/04/17 05:17 80 16 146/90 H Weight Weight 193 lb 8 oz Most Recent Monitor Data Heart Rate from ECG 92 NIBP 84/54 NIBP BP-Mean 61 Respiration from ECG 14 SpO2 100 I&O: 08/03/17 08/04/17 08/05/17 06:59 06:59 06:59 Intake Total 1370 500 Output Total 1325 1100 Balance 45 -600 Result Diagrams: 07/31/17 19:52 08/04/17 15:58 Additional Labs: Accuchecks 08/04/17 08/04/17 08/04/17 16:02 14:50 14:03 POC Glucose 109 151 H 232 H 08/04/17 08/04/17 08/04/17 13:41 13:02 12:17 POC Glucose 150 H 120 H 97 08/04/17 10:42 POC Glucose 95 EKG Reviewed by me: Yes (Tele: NSR) Phys Exam - Physical Examination Obese, intubated HEENT: moist MMs ETT Neck: no nodes Respiratory: no wheezing, no rales, no rhonchi, clear to auscultation bilateral [place] chest tubes+ Cardiovascular: RRR, no rub S1, S2 Gastrointestinal: soft, non-tender, no distention, positive bowel sounds Neurological: moves all 4 limbs Deviation from normal: Unable to assess mood, affect or orientation to person, place or time Deviation from normal: Dressings over surgical sites Dx/Plan (1) NSTEMI (non-ST elevated myocardial infarction) Code(s): I21.4 - NON-ST ELEVATION (NSTEMI) MYOCARDIAL INFARCTION Status: Acute Comment: s/p CABG for multivessel CAD (2) HLD (hyperlipidemia) Code(s): E78.5 - HYPERLIPIDEMIA, UNSPECIFIED Status: Chronic Comment: continue statin and gemfibrozil (3) Tobacco abuse Code(s): Z72.0 - TOBACCO USE Status: Chronic Comment: continue nicotine replacement therapy (4) HTN (hypertension) Code(s): I10 - ESSENTIAL (PRIMARY) HYPERTENSION Status: Chronic Comment: BP on lower side at this time, titrate antihypertensives as needed - Plan * . Review of Systems - Medications/Allergies Allergies/Adverse Reactions: Allergies Allergy/AdvReac Type Severity Reaction Status Date / Time No Known Drug Allergies Allergy Verified 08/19/15 00:26 Medications: Current Medications Acetaminophen (Tylenol) 650 mg PO Q6H PRN PRN Reason: Headache/Fever Or Mild Pain Hydrocodone Bitart/Acetaminophen ([place] 5/325) 1 tab PO Q4H PRN PRN Reason: Moderate Pain (4-6) Hydrocodone Bitart/Acetaminophen ([place] 5/325) 2 tab PO Q4H PRN PRN Reason: Severe Pain (7-10) Al Hydroxide/Mg Hydroxide (Maalox) 30 ml PO Q4H PRN PRN Reason: Indigestion Albumin Human (Albumin 5%) 12.5 gm IVPB Q6H PRN PRN Reason: To Maintain SBP> 90 mmHG Stop: 08/05/17 15:41 Albumin Human (Albumin 5%) 25 gm IVPB Q6H PRN PRN Reason: To Maintain SBP > 90 mmHG Stop: 08/05/17 15:41 Last Admin: 08/04/17 16:24 Dose: 25 gm Albuterol/Ipratropium (Duoneb) 3 ml NEB [id number] PRN PRN Reason: SHORTNESS OF BREATH Aspirin (Aspirin) 325 mg PO DAILY [facility] Atorvastatin Calcium (Lipitor) 20 mg PO HS [facility] Bisacodyl (Dulcolax) 10 mg PO Q12H PRN PRN Reason: Constipation Bisacodyl (Dulcolax) 10 mg IN Q12H PRN PRN Reason: Constipation Cefazolin Sodium (Ancef) 2 gm SLOW IVP ONCALL-OR [facility] Stop: 08/05/17 02:01 Dextrose/Water (Dextrose 50%) 25 gm SLOW IVP PRN PRN PRN Reason: PER HYPOGLYCEMIC PROTOCOL Famotidine (Pepcid) 20 mg SLOW IVP Q12HR [facility] Fentanyl (Sublimaze) 25 mcg SLOW IVP Q2H PRN PRN Reason: Moderate Pain (4-6) Stop: 08/06/17 15:40 Fentanyl (Sublimaze) 50 mcg SLOW IVP Q2H PRN PRN Reason: Severe Pain (7-10) Stop: 08/06/17 15:40 Gemfibrozil (Lopid) 600 mg PO BID-AC [facility] Glucagon (Glucagon) 1 mg SC PRN PRN PRN Reason: PER HYPOGLYCEMIC PROTOCOL Guaifenesin/Dextromethorphan (Robitussin Dm) 15 ml PO Q4H PRN PRN Reason: Cough Hydralazine HCl (Apresoline) 10 mg SLOW IVP Q6H PRN PRN Reason: To Maintain SBP< 140mmHG Heparin Sodium (Porcine) 30, (000 units/ Sodium Chloride) 1,003 mls @ 0 mls/hr FS [facility]CALL [facility] PRN Reason: As Directed Stop: 08/04/17 18:00 Hetastarch/Sodium Chloride (Hespan) 500 mls @ 0 mls/hr IVPB PRN PRN; As Directed PRN Reason: To Maintain SBP > 90mmHg Stop: 08/05/17 15:40 Norepinephrine Bitartrate (Levophed) 250 mls @ 0 mls/hr IVPB PRN PRN; Protocol ; Titrate PRN Reason: To maintain SBP > 90 mmHG Nicardipine HCl 25 mg/ Sodium (Chloride) 250 mls @ 0 mls/hr IVPB INF PRN; Protocol; Titrate PRN Reason: To Maintain SBP< 140mmHG Nitroglycerin/Dextrose (Nitroglycerin 50 Mg/250 Ml Bot) 250 mls @ 0 mls/hr IVPB PRN PRN; Protocol; Titrate PRN Reason: To Maintain SBP< 140mmHG Sodium Chloride (Normal Saline 0.9%) 1,000 mls @ 75 mls/hr IV .[id number] [facility] Last Admin: 08/04/17 16:24 Dose: 1,000 mls Insulin Human Regular 100 (units/ Sodium Chloride) 101 mls @ 0 mls/hr IVPB INF [facility]; As Directed PRN Reason: Protocol Dextrose/Water (D5w) 1,000 mls @ 0 mls/hr IV INF PRN; As Directed PRN Reason: PRN HYPOGLYCEMIC PROTOCOL Insulin Human Regular (Humulin R) 0 units SC Q4H PRN; Protocol PRN Reason: POST OP SLIDING SCALE Ketorolac Tromethamine (Toradol) 30 mg IVP Q6HR [facility] Stop: 08/05/17 12:01 Levothyroxine Sodium (Synthroid) 25 mcg PO 0600 [facility] Lisinopril (Zestril) 10 mg PO DAILY [facility] Last Admin: 08/04/17 05:21 Dose: 10 mg Morphine Sulfate (Morphine) 2 mg SLOW IVP Q15MIN PRN PRN Reason: Severe Pain (7-10) Nicotine (Nicoderm Patch) 14 mg TD Q24HR [facility] Ondansetron HCl (Zofran) 4 mg IVP Q6H PRN PRN Reason: Nausea/Vomiting Potassium Chloride (Kcl) 20 meq IVPB PRN PRN PRN Reason: K level </= 4.0 Promethazine HCl (Phenergan) 6.25 mg IM Q4H PRN PRN Reason: Nausea/Vomiting Sodium Chloride (Flush - Normal Saline) 10 ml IVF Q12HR [facility] Last Admin: 08/04/17 12:43 Dose: Not Given Sodium Chloride (Flush - Normal Saline) 10 ml IVF PRN PRN PRN Reason: Saline Flush
[2017-08-04 16:45] LABS: Band 14 % (5-11); Hemoglobin 13.9 g/dL (14.0-18.0); Lymphocytes 15 % (21-51); MDiff Complete? YES; Mean Corpuscular HGB CONC 34.4 g/dL (32.0-36.0); Mean Corpuscular Hemoglobin 31.7 pg (27.0-31.0); Mean Platelet Volume 7.4 fL (7.4-10.4); Metamyelocyte 1 % (0-0); Monocytes 4 % (0-10); Neutrophil 66 % (42-75); PLT Morphology Comment Appears Adequate; Platelet Count 216 thou/uL (130-400); RBC Distribution Width 12.5 % (11.5-14.5); Red Blood Cell (RBC) Count 4.38 mill/uL (4.70-6.10); White Blood Cell (WBC) Count 21.3 thou/uL (4.8-10.8)
--- NOTE | 2017-08-04 17:12 | RAD ---
CHEST ONE VIEW: History: Status post open heart surgery. Comparison: 07-31-17 FINDINGS: There is an endotracheal tube 2.8 cm above the aric. Left sided chest tube is identified with the d istal tip in the apex. Sternotomy wires are noted. Right sided central venous catheter is identified. Normal cardiac silhouette. The lungs and pleural spaces are clear. No pneumothorax or osseous abnorm ality. There appears to be a left lower lobe consolidation with air bronchograms. Findings may be due to atelectasis or aspiration. IMPRESSION: 1. Findings compatible with recent open heart surgery. 2. Left lower lobe opacification as above. POS: [facility]
--- NOTE | 2017-08-04 17:14 | PDOC.CTH ---
Cardiology Progress Note - Subjective He had his CABG earlier today. He remains intubated for now on minimal pressor support. - Objective Vital Signs Pulse Resp BP BP 08/04/17 16:00 12 08/04/17 15:49 94 111/61 08/04/17 05:17 80 16 146/90 H Weight 193 lb 8 oz 08/03/17 08/04/17 08/05/17 06:59 06:59 06:59 Intake Total 1370 500 Output Total 1325 1230 Balance 45 -730 - Physical Examination General/Neuro: other: (Intubated) Neck: no JVD present Lungs: unlabored respirations Heart: RRR Abdomen: NT/ND Extremities: + edema B (1+) - Telemetry Telemetry Rhythm: NSR - Labs Result Diagrams: 08/04/17 15:58 08/04/17 15:58 Troponin/CKMB CK-MB (CK-2) 11.1 ng/mL (0-6.6) H* 07/31/17 19:58 Troponin I 0.931 ng/mL (< 0.028) H* 07/31/17 22:45 - Assessment/Plan 1. NSTEMI 2. Multivessel CAD. 3. Tobacco abuse. 4. HTN 5. Hep C PLAN: - Continue supportive care. - Aspirin/statin for life. - BB/ACEI once BP allow. - Will follow.
[2017-08-04] MEDS: Ketorolac Tromethamine 30 MG/ML VIAL IVP SCH (17:26)
[2017-08-04 19:55] LABS: Actual Bicarbonate (HCO3a) 18.9 mEq/L (22-26); Base Excess (BEa) -6.2 mEq/L (0 (+/-) 2.5); CO2 Tension 35.8 mmHg (35.0-45.0); Hematocrit-ABG 39.8 % (42.0-52.0); Hemoglobin (Hb) 13.2 g/dL (14.0-18.0); pH, Arterial 7.34 (7.35-7.45)
[2017-08-04 19:56] LABS: Calcium, Ionized 1.1 mmol/L (1.12-1.30); Puncture Site LINE
[2017-08-04] MEDS: Insulin Regular 300 UNITS/3 ML VIAL SC PRN (20:16)
[2017-08-04] MEDS: Fentanyl 100 MCG/2 ML VIAL SLOW IVP PRN ×2 (20:17→22:38)
[2017-08-04] MEDS: Atorvastatin Calcium 20 MG TAB PO SCH (20:18)
--- NOTE | 2017-08-04 20:19 | OP ---
DATE OF PROCEDURE: 08/04/2017 PROCEDURES PERFORMED: Right subclavian central line placement, coronary artery bypass grafting x5 with left internal mammary artery to the LAD, reverse greater saphenous vein graft from the aorta to the PDA and to the second obtuse marginal, reverse greater saphenous vein graft from the OM2 graft to the second diagonal, left radial artery from the aorta (abebe of the OM2 graft proximal anastomosis) to the OM1. PREOPERATIVE DIAGNOSIS: Coronary artery disease, status post non-ST elevation infarction. POSTOPERATIVE DIAGNOSIS: Coronary artery disease, status post non-ST elevation myocardial infarction. SURGEON: Dr. Zhou. EFFICIENCY ANALYST: Adolfo. ANESTHESIA: General endotracheal. INDICATIONS: The patient is a 52-year-old man with a strongly positive family history of premature coronary artery disease. He had been having exertional angina for about 2 or 3 months, culminating with a prolonged episode that prompted presentation to the hospital, ruled in for myocardial infarction and cardiac catheterization demonstrated 3-vessel coronary artery disease with a very high grade ostial LAD lesion, an occluded right coronary with distal branch vessels filling left to right significant disease in 2 diagonals isolated between the ostial lesion in the LAD and high grade lesion in the OM1 and a long modest lesion in a very large OM2. He had preserved left ventricular systolic function. He was now taken to the operating room for coronary revascularization. FINDINGS: Pump time 110 minutes. Cross clamp time 50 minutes. The MARCELA radial artery and saphenous vein were good quality conduits. The LAD was about 2 mm in diameter. The first diagonal was about 1 to 1-1/2 mm. The second diagonal was about 1.5-2 mm and was of better quality. The OM1 was about 1.5-2 mm. The OM2 is about 2.5 mm. The pericardium was closed. NARRATIVE REPORT: After informed consent was obtained, the patient was taken to the operating room and placed in supine position on the operating table. After the induction of general anesthesia, the patient was placed in Trendelenburg and his right upper chest was prepped and draped in sterile fashion. A triple-lumen central line kit was used to place a right subclavian central line. All three ports easily aspirated and flushed. The line was secured. The patient's torso, groins, lower extremities and left upper extremity were then prepped and draped in sterile fashion and the left radial artery was harvested with attached vena communicantes from near its origin from the brachial artery to the distal forearm that wound was inspected for hemostasis and closed in layers of subcutaneous and subcuticular Vicryl. Dermabond was applied and the arm was tucked. Saphenous vein was harvested from a groin to mid-calf endoscopically from the left lower extremity that was prepared for use as a graft and the harvest sites were closed in layers of subcutaneous and subcuticular Vicryl. A median sternotomy was performed and the left MARCELA was mobilized as a pedicle from the level of the xiphoid to the level of the subclavian vein through an extrapleural exposure. Two small rents in the pleura one near the apex and one towards the diaphragmatic surface were closed with 6-0 Prolene suture. The patient was heparinized and the mammary was ligated and divided distally. There was good flow through the mammary which was then instilled intraluminally with papaverine solution. The mammary bed was inspected for hemostasis. The MARCELA retractors were placed with Gonzales retractor, the pericardium was opened and marsupialized. The aorta was palpated and was soft. A double concentric pursestring of 2-0 Ethibond was placed in the ascending aorta just within the pericardial reflection and a single pursestring was placed in the right atrial appendage. Aortic and venous cannulae were inserted and secured by their pursestrings. Cardiopulmonary bypass was instituted and the patient was systemically cooled. The heart was examined and the vessel to be bypassed were identified. Without developing the plane between the aorta and the pulmonary artery, an aortic cross clamp was applied and cardioplegia was administered through an aortic root needle. When arrest have been achieved, attention was turned to the distal right coronary system. The distal right coronary and proximal PDA were very hard, the vessel became softer on the epicardial surface beyond the great vein, it was exposed and opened there and grafted end-to-side with saphenous vein. The anastomosis was tested by flushing cold cardioplegia down the graft. Attention was then turned to the second obtuse marginal which was opened and grafted just proximal to its bifurcation in a similar fashion. The OM1 was then opened and the radial artery was anastomosed to it with running 7-0 Prolene. The second diagonal was opened out where it became a good quality vessel and saphenous vein was anastomosed in end-to-side. The LAD was opened and the mammary was introduced into the pericardium through a longitudinal slit made anterior to the left phrenic nerve. The mammary was anastomosed to the LAD with running 7- 0 Prolene. The mammary tacked to the epicardium. The aortic cross clamp was placed. Partial occluding clamp and two aortotomies were made in the ascending aorta with a scalpel and punch incorporating the root needle site for one of those aortotomies. The PDA graft was brought along the right side of the heart and anastomosed to the more proximal aortotomy. The OM2 graft was anastomosed to the more distal aortotomy. The diagonal vein graft was not long enough to reach the aorta. The partial occluding clamp was partially released to distend the vein grafts. A bulldog was applied to the OM2 graft distally and a longitudinal venotomy was created in it and the vein graft to the diagonal was anastomosed there end-to-side. A venotomy was then made in the abebe of the proximal anastomosis of the OM2 graft and the radial artery graft to the OM1 was spatulated and anastomosed there with running 7-0 Prolene. The partial occlusion clamp was removed and the vein grafts were deaired. The anastomoses were inspected for hemostasis. A posterior pericardial drain was brought out through a separate incision and secured with suture. Right atrial and right ventricular temporary epicardial pacing wires were placed. When the ventilator was turned back on, bubbling could be appreciated towards the apex where the pleura had been mobilized from the hilar reflections suggesting either an additional rent in the pleura or an incomplete closure of the identified rent. A 36 Samoan chest T-tube was brought out through a separate incision and introduced into the left pleural space. The patient was then from cardiopulmonary bypass. The aortic and venous cannula removed and their pursestring secured. Protamine was administered. When hemostasis was adequate , an anterior mediastinal drain was placed in the pericardium was easily closed over with running Vicryl. Sternum was reapproximated with #7 stainless steel wires. The fascia was closed over the wires with heavy Vicryl and subcutaneous tissue was irrigated and reapproximated and the skin was closed with Vicryl subcuticular stitch. The wounds were dressed and the patient was taken to the Intensive Care Unit in stable condition. DAMEON
[2017-08-04] MEDS: Famotidine 40 MG/4 ML VIAL SLOW IVP SCH (20:58)
[2017-08-04 21:51] LABS: Hemoglobin 12.8 g/dL (14.0-18.0)
[2017-08-04 22:04] LABS: Potassium 4.7 mmol/L (3.5-5.1)
[2017-08-05] MEDS: Ketorolac Tromethamine 30 MG/ML VIAL IVP SCH ×3 (00:24→12:14)
[2017-08-05] MEDS: Insulin Regular 300 UNITS/3 ML VIAL SC PRN ×4 (00:31→12:34)
[2017-08-05] MEDS: HYDROcodone/Acetaminophen 5/325 mg Tablet PO PRN ×4 (01:41→20:56)
[2017-08-05 04:20] LABS: Anion Gap 8 mmol/L (10-20); BUN (Urea Nitrogen) 21 mg/dL (8.4-25.7); Calc. Creatinine Clearance 128 mL/min (70-130); Calcium 7.5 mg/dL (7.8-10.44); Carbon Dioxide 22 mmol/L (22-29); Chloride 112 mmol/L (98-107); Estimated GFR-MDRD Greater than 90; Glucose 123 mg/dL (70-105); Potassium 4.2 mmol/L (3.5-5.1); Sodium 138 mmol/L (136-145)
[2017-08-05 04:24] LABS: #Lymphocytes 0.6 thou/uL (1.20-3.40); %Basophils 0.1 % (0.0-1.0); %Eosinophils 0.2 % (0.0-10.0); %Lymphocytes 5.9 % (21.0-51.0); %Monocytes 8.9 % (0.0-10.0); %Neutrophils 84.9 % (42.0-75.0); Hemoglobin 10.1 g/dL (14.0-18.0); Mean Corpuscular HGB CONC 35.5 g/dL (32.0-36.0); Mean Corpuscular Hemoglobin 32.5 pg (27.0-31.0); Mean Corpuscular Volume 91.4 fl (80.0-94.0); Mean Platelet Volume 7.7 fL (7.4-10.4); Platelet Count 165 thou/uL (130-400); RBC Distribution Width 12.6 % (11.5-14.5); Red Blood Cell (RBC) Count 3.11 mill/uL (4.70-6.10); White Blood Cell (WBC) Count 10.6 thou/uL (4.8-10.8)
[2017-08-05] MEDS: Levothyroxine Sodium 25 MCG TAB PO SCH (05:07)
[2017-08-05] MEDS: Sodium Chloride 0.9% 1,000 ML IV SCH ×2 (05:13→19:23)
--- NOTE | 2017-08-05 08:15 | RAD ---
SINGLE VIEW OF THE CHEST: COMPARISON: 08/04/17. HISTORY: Status post open heart surgery. FINDINGS: A single view of the chest shows a cardiomediastinal silhouette which is upper limits of normal in si ze. The patient is status post sternotomy. The endotracheal tube has been removed. The left-sided chest tube is unchanged in position. The central venous catheter is unchanged in position. There is no evidence of consolidation, mass, pneumothorax, or pleural effusion. IMPRESSION: Stable exam status post extubation. POS: [facility]
[2017-08-05] MEDS: Furosemide 40 MG/4 ML VIAL SLOW IVP SCH ×2 (08:52→14:07)
[2017-08-05] MEDS: Gemfibrozil 600 MG TAB PO SCH ×2 (08:53→16:15)
[2017-08-05] MEDS: Aspirin 325 MG TAB PO SCH (08:54)
[2017-08-05] MEDS: Metoprolol Tartrate 25 MG TAB PO SCH ×2 (08:54→20:11)
[2017-08-05] MEDS: Lisinopril 10 MG TAB PO SCH (08:57)
[2017-08-05] MEDS: Famotidine 40 MG/4 ML VIAL SLOW IVP SCH (09:29)
--- NOTE | 2017-08-05 10:24 | CON ---
DATE OF CONSULTATION: 08/05/2017 SERVICE: Pulmonary Medicine. REASON FOR CONSULTATION: ICU patient. HISTORY OF PRESENT ILLNESS: The patient is a pleasant 52-year-old male with past medical history significant for coronary artery disease. He presented to the hospital with a non-ST elevation NM. Ultimately, he was found to have severe 3-vessel disease. He underwent a coronary artery bypass graft, and is currently postop day #1. He extubated yesterday without difficulty. He does not have any known lung problems, but he does have some sleep apnea which is not diagnosed. PAST MEDICAL HISTORY: 1. Hypertension. 2. Hypothyroidism. 3. Dyslipidemia. 4. Coronary artery disease. 5. Hepatitis C. 6. Obstructive sleep apnea by history. PAST SURGICAL HISTORY: 1. Coronary artery bypass graft. 2. Incision and drainage of the right foot lesion. FAMILY HISTORY: Noncontributory. SOCIAL HISTORY: Negative for alcohol, tobacco or illicit drug use currently. He denies any exposure to chemicals, dust asbestos or tuberculosis. ALLERGIES: No known drug allergies. MEDICATIONS: List of his inpatient medications were reviewed. No specific updates were made at this time. REVIEW OF SYSTEMS: General, head, eyes, nose, throat, cardiovascular, respiratory, GI, , musculoskeletal, neurologic and skin is negative except as mentioned in the HPI. PHYSICAL EXAMINATION: VITAL SIGNS: Afebrile, pulse 115, blood pressure 127/70, respirations 26, saturation 98% on room air. GENERAL: The patient is awake, alert, no apparent distress. LUNGS: Excellent air entry. There is no prolonged expiratory phase, wheezing, rhonchi or crackles. HEART: Normal rate and regular. ABDOMEN: Soft, nontender, and nondistended. Bowel sounds are positive. MUSCULOSKELETAL: No cyanosis or clubbing. There is no pitting in the bilateral lower extremities. NEUROLOGIC: Nonfocal. : No Godinez. LABORATORY DATA: WBC 10.6, hemoglobin 10.1, and platelets 165,000. INR 1.2. PH 7.34, pCO2 35, pO2 90. Basic metabolic profile is essentially unremarkable otherwise. Calcium is low at 7.5. Chloride 112 and gently up trending. Urine drug screen is positive for TCA and opiates. IMAGING: Chest x-ray demonstrates right subclavian central venous catheter terminates in adequate position. There are sternotomy wires present. There is a large left-sided thoracostomy drain in place. There is also mediastinal drain. Low lung volumes accentuate interstitial markings. I do not see any obvious pneumothorax present. That being said, I can see clear lung markings at the right apex. ASSESSMENT: 1. Coronary artery disease, status post coronary artery bypass graft x5 vessels , postop day #1. 2. Obstructive sleep apnea. 3. Hypertension. PLAN: We will wean Levophed away. Once the chest tube stops putting out fluid , that will be discontinued per Cardiothoracic Surgery. Pulmonary will continue to follow along while patient remains in this location. He would benefit from an outpatient evaluation for sleep apnea. That being said, patient said that his finances preclude evaluation that was previously suggested. As such, I will leave it to him to discuss this with his doctors moving forward. He understands that severe sleep apnea can put extra stress on the heart and brain which can cause injury to these things as time goes on and can contribute to sudden cardiac . 70 minutes have been devoted to this patient in various activities. I personally reviewed all imaging studies and laboratory data noted within this document. For fifty percent of this time, I was interacting with the patient at the bedside or coordinating care with the care team. For the remainder of the time I was immediately available to the patient in the hospital unit. DAMEON
--- NOTE | 2017-08-05 12:58 | PDOC.PN ---
- Subjective Encounter Start Date: 08/05/17 Encounter Start Time: 09:20 Pt seen for followup re: NSTEMI. Reports soreness at surgical sites, no other complaints. - Objective MAR Reviewed: Yes Vital Signs & Weight: Vital Signs (12 hours) Temp Pulse Resp BP Pulse Ox 08/05/17 08:57 127/70 08/05/17 08:00 98.4 F 115 H 16 98 08/05/17 07:00 98.6 F 08/05/17 03:00 98.4 F Weight Weight 192 lb 3.889 oz Most Recent Monitor Data Heart Rate from ECG 115 NIBP 87/61 NIBP BP-Mean 73 Respiration from ECG 15 SpO2 96 I&O: 08/04/17 08/05/17 08/06/17 06:59 06:59 06:59 Intake Total 1370 2714.8 250 Output Total 1325 2220 670 Balance 45 494.8 -420 Result Diagrams: 08/05/17 03:25 08/05/17 03:25 Additional Labs: Accuchecks 08/05/17 08/05/17 08/05/17 12:35 07:42 03:31 POC Glucose 129 H 121 H 124 H 08/05/17 08/04/17 08/04/17 00:32 19:59 16:02 POC Glucose 135 H 146 H 109 08/04/17 08/04/17 08/04/17 14:50 14:03 13:41 POC Glucose 151 H 232 H 150 H 08/04/17 13:02 POC Glucose 120 H EKG Reviewed by me: Yes (Tele: NSR) Phys Exam - Physical Examination Obesity HEENT: moist MMs, sclera anicteric, oral pharynx no lesions, 2+ tonsils Neck: no nodes, no JVD, supple, full ROM Respiratory: no wheezing, no rales, no rhonchi, clear to auscultation bilateral chest tubes Cardiovascular: RRR, no rub S1, S2 Gastrointestinal: soft, non-tender, no distention, positive bowel sounds Neurological: moves all 4 limbs Psychiatric: normal affect, A&O x 3 Dx/Plan (1) NSTEMI (non-ST elevated myocardial infarction) Code(s): I21.4 - NON-ST ELEVATION (NSTEMI) MYOCARDIAL INFARCTION Status: Acute Comment: s/p CABG for multivessel CAD, extubated yesterday. Still on pressors. (2) HLD (hyperlipidemia) Code(s): E78.5 - HYPERLIPIDEMIA, UNSPECIFIED Status: Chronic Comment: on statin and gemfibrozil (3) Tobacco abuse Code(s): Z72.0 - TOBACCO USE Status: Chronic Comment: continue nicotine patch (4) HTN (hypertension) Code(s): I10 - ESSENTIAL (PRIMARY) HYPERTENSION Status: Chronic Comment: on pressor drip (5) Insomnia Code(s): G47.00 - INSOMNIA, UNSPECIFIED Status: Acute Comment: continue PRN melatonin - Plan * . Review of Systems - Review of Systems Constitutional: negative: fever, chills, sweats, weakness, malaise Respiratory: negative: Cough, Shortness of Breath, SOB with Excertion, Pleuritic Pain, Wheezing Cardiovascular: chest pain. negative: palpitations, orthopnea, paroxysmal nocturnal dyspnea, edema, light headedness Skin: negative: Rash, Lesions, Armond, Bruising Neurological: negative: Weakness, Numbness, Incoordination, Change in Speech, Confusion, Seizures - Medications/Allergies Allergies/Adverse Reactions: Allergies Allergy/AdvReac Type Severity Reaction Status Date / Time No Known Drug Allergies Allergy Verified 08/19/15 00:26 Medications: Current Medications Acetaminophen (Tylenol) 650 mg PO Q6H PRN PRN Reason: Headache/Fever Or Mild Pain Hydrocodone Bitart/Acetaminophen ([place] 5/325) 1 tab PO Q4H PRN PRN Reason: Moderate Pain (4-6) Hydrocodone Bitart/Acetaminophen ([place] 5/325) 2 tab PO Q4H PRN PRN Reason: Severe Pain (7-10) Last Admin: 08/05/17 07:21 Dose: 2 tab Al Hydroxide/Mg Hydroxide (Maalox) 30 ml PO Q4H PRN PRN Reason: Indigestion Albumin Human (Albumin 5%) 12.5 gm IVPB Q6H PRN PRN Reason: To Maintain SBP> 90 mmHG Stop: 08/05/17 15:41 Albumin Human (Albumin 5%) 25 gm IVPB Q6H PRN PRN Reason: To Maintain SBP > 90 mmHG Stop: 08/05/17 15:41 Last Admin: 08/05/17 01:32 Dose: 25 gm Albuterol/Ipratropium (Duoneb) 3 ml NEB [id number] PRN PRN Reason: SHORTNESS OF BREATH Aspirin (Aspirin) 325 mg PO DAILY [facility] Last Admin: 08/05/17 08:54 Dose: 325 mg Atorvastatin Calcium (Lipitor) 20 mg PO HS [facility] Last Admin: 08/04/17 20:18 Dose: 20 mg Bisacodyl (Dulcolax) 10 mg PO Q12H PRN PRN Reason: Constipation Bisacodyl (Dulcolax) 10 mg [place] Q12H PRN PRN Reason: Constipation Dextrose/Water (Dextrose 50%) 25 gm SLOW IVP PRN PRN PRN Reason: PER HYPOGLYCEMIC PROTOCOL Famotidine (Pepcid) 20 mg PO Q12HR [facility] Fentanyl (Sublimaze) 25 mcg SLOW IVP Q2H PRN PRN Reason: Moderate Pain (4-6) Stop: 08/06/17 15:40 Fentanyl (Sublimaze) 50 mcg SLOW IVP Q2H PRN PRN Reason: Severe Pain (7-10) Stop: 08/06/17 15:40 Last Admin: 08/04/17 22:38 Dose: 50 mcg Furosemide (Lasix) 40 mg SLOW IVP 0600,1400 [facility] Stop: 08/05/17 14:01 Last Admin: 08/05/17 08:52 Dose: 40 mg Gemfibrozil (Lopid) 600 mg PO BID-AC [facility] Last Admin: 08/05/17 08:53 Dose: 600 mg Glucagon (Glucagon) 1 mg SC PRN PRN PRN Reason: PER HYPOGLYCEMIC PROTOCOL Guaifenesin/Dextromethorphan (Robitussin Dm) 15 ml PO Q4H PRN PRN Reason: Cough Hydralazine HCl (Apresoline) 10 mg SLOW IVP Q6H PRN PRN Reason: To Maintain SBP< 140mmHG Hetastarch/Sodium Chloride (Hespan) 500 mls @ 0 mls/hr IVPB PRN PRN; As Directed PRN Reason: To Maintain SBP > 90mmHg Stop: 08/05/17 15:40 Last Admin: 08/04/17 21:51 Dose: 500 mls Norepinephrine Bitartrate (Levophed) 250 mls @ 0 mls/hr IVPB PRN PRN; Protocol ; Titrate PRN Reason: To maintain SBP > 90 mmHG Nicardipine HCl 25 mg/ Sodium (Chloride) 250 mls @ 0 mls/hr IVPB INF PRN; Protocol; Titrate PRN Reason: To Maintain SBP< 140mmHG Nitroglycerin/Dextrose (Nitroglycerin 50 Mg/250 Ml Bot) 250 mls @ 0 mls/hr IVPB PRN PRN; Protocol; Titrate PRN Reason: To Maintain SBP< 140mmHG Sodium Chloride (Normal Saline 0.9%) 1,000 mls @ 75 mls/hr IV .[id number] [facility] Last Admin: 08/05/17 05:13 Dose: Not Given Insulin Human Regular 100 (units/ Sodium Chloride) 101 mls @ 0 mls/hr IVPB INF [facility]; As Directed PRN Reason: Protocol Dextrose/Water (D5w) 1,000 mls @ 0 mls/hr IV INF PRN; As Directed PRN Reason: PRN HYPOGLYCEMIC PROTOCOL Insulin Human Regular (Humulin R) 0 units SC Q4H PRN; Protocol PRN Reason: POST OP SLIDING SCALE Last Admin: 08/05/17 12:34 Dose: 2 unit Levothyroxine Sodium (Synthroid) 25 mcg PO 0600 [facility] Last Admin: 08/05/17 05:07 Dose: 25 mcg Lisinopril (Zestril) 10 mg PO DAILY [facility] Last Admin: 08/05/17 08:57 Dose: Not Given Metoprolol Tartrate (Lopressor) 25 mg PO BID [facility] Last Admin: 08/05/17 08:54 Dose: 25 mg Morphine Sulfate (Morphine) 2 mg SLOW IVP Q15MIN PRN PRN Reason: Severe Pain (7-10) Nicotine (Nicoderm Patch) 14 mg TD Q24HR [facility] Last Admin: 08/04/17 17:57 Dose: 14 mg Ondansetron HCl (Zofran) 4 mg IVP Q6H PRN PRN Reason: Nausea/Vomiting Potassium Chloride (Kcl) 20 meq IVPB PRN PRN PRN Reason: K level </= 4.0 Promethazine HCl (Phenergan) 6.25 mg IM Q4H PRN PRN Reason: Nausea/Vomiting Sodium Chloride (Flush - Normal Saline) 10 ml IVF Q12HR [facility] Last Admin: 08/05/17 09:04 Dose: 10 ml Sodium Chloride (Flush - Normal Saline) 10 ml IVF PRN PRN PRN Reason: Saline Flush
--- NOTE | 2017-08-05 18:18 | PDOC.CTH ---
Cardiology Progress Note - Subjective He is doing better today. Still needing pressor support to maintain BP. - Objective Vital Signs Temp Pulse Resp BP Pulse Ox 08/05/17 17:00 98.4 F 08/05/17 12:00 98.7 F 08/05/17 08:57 127/70 08/05/17 08:00 98.4 F 115 H 16 98 08/05/17 07:00 98.6 F Weight 192 lb 3.889 oz 08/04/17 08/05/17 08/06/17 06:59 06:59 06:59 Intake Total 1370 2714.8 650 Output Total 1325 2220 2480 Balance 45 494.8 -1830 - Physical Examination General/Neuro: alert & oriented x3, NAD Neck: no JVD present Lungs: CTA, unlabored respirations Heart: RRR Abdomen: NT/ND Extremities: + edema B (1+) - Telemetry Telemetry Rhythm: NSR - Labs Result Diagrams: 08/05/17 03:25 08/05/17 03:25 Troponin/CKMB CK-MB (CK-2) 11.1 ng/mL (0-6.6) H* 07/31/17 19:58 Troponin I 0.931 ng/mL (< 0.028) H* 07/31/17 22:45 - Assessment/Plan 1. NSTEMI 2. Multivessel CAD s/p CABG. 3. Tobacco abuse. 4. HTN 5. Hep C PLAN: - Continue to wean off pressor support. - Aspirin/statin for life. - BB/ACEI once BP allow. - Will follow.
[2017-08-05] MEDS: Atorvastatin Calcium 20 MG TAB PO SCH (20:11)
[2017-08-05] MEDS ORDERED: Famotidine 20 MG TAB PO SCH (21:00)
[2017-08-06] MEDS: HYDROcodone/Acetaminophen 5/325 mg Tablet PO PRN ×6 (00:55→21:57)
[2017-08-06 03:57] LABS: #Lymphocytes 1.5 thou/uL (1.20-3.40); #Monocytes 1.2 thou/uL (0.11-0.59); #Neutrophils 9.2 thou/uL (1.40-6.50); %Basophils 0.3 % (0.0-1.0); %Eosinophils 0.2 % (0.0-10.0); %Lymphocytes 12.4 % (21.0-51.0); %Monocytes 10.4 % (0.0-10.0); %Neutrophils 76.7 % (42.0-75.0); Mean Corpuscular HGB CONC 34.8 g/dL (32.0-36.0); Mean Corpuscular Hemoglobin 31.8 pg (27.0-31.0); Mean Corpuscular Volume 91.4 fl (80.0-94.0); Mean Platelet Volume 7.4 fL (7.4-10.4); Platelet Count 164 thou/uL (130-400); RBC Distribution Width 12.3 % (11.5-14.5); Red Blood Cell (RBC) Count 3.15 mill/uL (4.70-6.10)
[2017-08-06 04:17] LABS: Anion Gap 9 mmol/L (10-20); BUN (Urea Nitrogen) 22 mg/dL (8.4-25.7); Calc. Creatinine Clearance 125 mL/min (70-130); Calcium 8.3 mg/dL (7.8-10.44); Carbon Dioxide 25 mmol/L (22-29); Chloride 105 mmol/L (98-107); Estimated GFR-MDRD Greater than 90; Glucose 107 mg/dL (70-105); Potassium 3.9 mmol/L (3.5-5.1); Sodium 135 mmol/L (136-145)
[2017-08-06] MEDS: Levothyroxine Sodium 25 MCG TAB PO SCH (05:14)
[2017-08-06] MEDS ORDERED: Bisacodyl 5 MG TAB PO PRN (06:58)
[2017-08-06] MEDS ORDERED: Mineral Oil ENEMA PR PRN (06:58)
[2017-08-06] MEDS ORDERED: diphenhydrAMINE 25 MG CAP PO PRN (06:58)
[2017-08-06] MEDS ORDERED: Nitroglycerin 0.4 MG TAB (25 Tab Bottle) SL PRN (06:58)
[2017-08-06] MEDS ORDERED: Bisacodyl 10 MG SUPP PR PRN (06:58)
[2017-08-06] MEDS ORDERED: Artificial Tears 18 DROP/0.9 ML EA EYE PRN (06:58)
[2017-08-06] MEDS ORDERED: Mag-Al 1200 mg/1200 mg/30 ML UDCUP PO PRN (06:58)
[2017-08-06] MEDS ORDERED: Guaifenesin DM 100-10/5 ML UDCUP PO PRN (06:58)
[2017-08-06] MEDS: Aspirin 325 MG TAB PO SCH (08:30)
[2017-08-06] MEDS: Metoprolol Tartrate 25 MG TAB PO SCH ×2 (08:30→21:57)
[2017-08-06] MEDS ORDERED: Aspirin 325 mg Enteric Coated Tablet PO SCH (09:00)
[2017-08-06] MEDS: Lisinopril 10 MG TAB PO SCH (09:00)
--- NOTE | 2017-08-06 09:04 | RAD ---
UPRIGHT PORTABLE CHEST 1 VIEW: Date: 08/06/17 HISTORY: 52-year-old male with history of postop open heart. COMPARISON: 08/05/17. FINDINGS: Left chest tube in place. Right subclavian catheter is unchanged. No significant pneumothorax. Stable patchy perihilar and lower lobe parenchymal changes. IMPRESSION: Stable chest. No pneumothorax. POS: OFF
--- NOTE | 2017-08-06 10:25 | PRG ---
DATE OF SERVICE: 08/06/2017 SERVICE: Pulmonary Medicine. INTERVAL HISTORY: The patient is doing fine from a respiratory standpoint. He is on room air. He c ontinues to have chest discomfort associated with chest tubes. Otherwise, he seems to be improving a little bit. He went for a walk today and demonstrated fairly good strength. He is eating just fine . PHYSICAL EXAMINATION: VITAL SIGNS: Afebrile, pulse 111, blood pressure 133/72, respirations 18, saturation 94% on room air . GENERAL: The patient is awake, alert, no apparent distress. LUNGS: Reduced air entry. Dependent crackles are present. No prolonged expiratory phase or wheezin g is appreciated. HEART: Normal rate, regular. ABDOMEN: Soft, nontender, nondistended. Bowel sounds are positive. MUSCULOSKELETAL: No cyanosis or clubbing. There is no pitting in the bilateral lower extremities. NEUROLOGIC: Grossly nonfocal. LABORATORY DATA: WBC 12.0, hemoglobin 10.0, and platelets 164,000. Basic metabolic profile is essen tially unremarkable. IMAGING DATA: Chest x-ray demonstrates no acute process other than left-sided chest tube, mediastina l drain, and low lung volumes bilaterally. There is a right subclavian central venous catheter which remains in good position with sternotomy wires in place. There is a likely left-sided small pleural parenchymal change. I favor atelectasis or small effusion. ASSESSMENT: 1. Coronary artery disease status post coronary bypass graft x5 vessels, postoperative day #2. 2. Obstructive sleep apnea. 3. Hypertension. PLAN: The patient is being transitioned to the floor. Pulmonary or Critical Care will continue to f meli for a day or two until he more clearly turns the corner in a positive direction. If he is so i ncline, when he leaves the hospital, he can follow up with me or set him up for a sleep study. Unfor tunately, finances are his barrier to making this occur. As such, no formal followup will be establi shed.
--- NOTE | 2017-08-06 13:47 | PDOC.CTH ---
Cardiology Progress Note - Subjective He is doing well. He walked with CR and felt well. - Objective Vital Signs Temp Pulse Pulse Pulse Resp BP BP 08/06/17 11:33 98.7 F 108 H 18 08/06/17 09:20 98.5 F 111 H 18 08/06/17 09:00 120/83 08/06/17 08:31 112 H 111 H 116/75 08/06/17 08:00 98.2 F 111 H 28 H 08/06/17 07:00 98.2 F 08/06/17 05:00 98.1 F BP BP BP Pulse Ox Pulse Ox Pulse Ox 08/06/17 11:33 119/69 90 L 08/06/17 09:20 133/72 94 L 08/06/17 09:00 08/06/17 08:31 124/80 98 94 L 08/06/17 08:00 94 L 08/06/17 07:00 08/06/17 05:00 Weight 190 lb 7.67 oz 08/05/17 08/06/17 08/07/17 06:59 06:59 06:59 Intake Total 2714.8 1782.7 670 Output Total 2220 3700 280 Balance 494.8 -1917.3 390 - Physical Examination General/Neuro: alert & oriented x3, NAD Neck: no JVD present Lungs: CTA, unlabored respirations Heart: RRR Abdomen: NT/ND Extremities: + edema B (1+) - Telemetry Telemetry Rhythm: NSR - Labs Result Diagrams: 08/06/17 03:45 08/06/17 03:45 Troponin/CKMB CK-MB (CK-2) 11.1 ng/mL (0-6.6) H* 07/31/17 19:58 Troponin I 0.931 ng/mL (< 0.028) H* 07/31/17 22:45 - Assessment/Plan 1. NSTEMI 2. Multivessel CAD s/p CABG. 3. Tobacco abuse. 4. HTN 5. Hep C PLAN: - Aspirin/statin for life. - BB/ACEI once BP allow. - Increase PT as tolerated.
[2017-08-06] MEDS: Nicotine 14 MG PATCH TD SCH (15:44)
--- NOTE | 2017-08-06 15:50 | PDOC.PN ---
- Subjective Encounter Start Date: 08/06/17 Encounter Start Time: 08:20 Pt seen for followup re: NSTEMI. Feels well, reports ambulating. - Objective MAR Reviewed: Yes Vital Signs & Weight: Vital Signs (12 hours) Temp Pulse Pulse Pulse Resp BP BP 08/06/17 15:22 99.9 F H 112 H 18 08/06/17 14:32 98.7 F 108 H 18 08/06/17 14:11 107 H 104 H 122/74 08/06/17 11:33 98.7 F 108 H 18 08/06/17 09:20 98.5 F 111 H 18 08/06/17 09:00 120/83 08/06/17 08:31 112 H 111 H 116/75 08/06/17 08:00 98.2 F 111 H 28 H 08/06/17 07:00 98.2 F 08/06/17 05:00 98.1 F BP BP BP Pulse Ox Pulse Ox Pulse Ox 08/06/17 15:22 110/69 93 L 08/06/17 14:32 08/06/17 14:11 106/64 08/06/17 11:33 119/69 90 L 08/06/17 09:20 133/72 94 L 08/06/17 09:00 08/06/17 08:31 124/80 98 94 L 08/06/17 08:00 94 L 08/06/17 07:00 08/06/17 05:00 Weight Weight 190 lb 7.67 oz Most Recent Monitor Data Heart Rate from ECG 112 NIBP 120/83 NIBP BP-Mean 99 Respiration from ECG 22 SpO2 93 I&O: 08/05/17 08/06/17 08/07/17 06:59 06:59 06:59 Intake Total 2714.8 1782.7 670 Output Total 2220 3700 280 Balance 494.8 -1917.3 390 Result Diagrams: 08/06/17 03:45 08/06/17 03:45 Additional Labs: Accuchecks 08/05/17 08/05/17 20:20 16:35 POC Glucose 114 H 113 H EKG Reviewed by me: Yes (Tele: NSR) Phys Exam - Physical Examination Obese HEENT: moist MMs, sclera anicteric, oral pharynx no lesions, 2+ tonsils Neck: supple Respiratory: no wheezing, no rales, no rhonchi, clear to auscultation bilateral Chest tubes+ Cardiovascular: RRR, no rub S1, S2 Gastrointestinal: soft, non-tender, no distention, positive bowel sounds Musculoskeletal: pulses present Neurological: moves all 4 limbs Psychiatric: normal affect, A&O x 3 Skin: no rash Dx/Plan (1) NSTEMI (non-ST elevated myocardial infarction) Code(s): I21.4 - NON-ST ELEVATION (NSTEMI) MYOCARDIAL INFARCTION Status: Acute Comment: Pt had CABG, off of pressors. Continue aspirin, beta fercho, statin and ACEI. (2) HLD (hyperlipidemia) Code(s): E78.5 - HYPERLIPIDEMIA, UNSPECIFIED Status: Chronic Comment: continue statin and gemfibrozil (3) Tobacco abuse Code(s): Z72.0 - TOBACCO USE Status: Chronic Comment: continue nicotine patch (4) HTN (hypertension) Code(s): I10 - ESSENTIAL (PRIMARY) HYPERTENSION Status: Chronic Comment: off of pressors. Monitor vital signs, titrate antihypertensives as needed. (5) Insomnia Code(s): G47.00 - INSOMNIA, UNSPECIFIED Status: Acute Comment: continue PRN melatonin - Plan * . Review of Systems - Review of Systems Constitutional: negative: fever, chills, sweats, weakness, malaise Cardiovascular: negative: chest pain, palpitations, orthopnea, paroxysmal nocturnal dyspnea, edema, light headedness Gastrointestinal: negative: Nausea, Vomiting, Abdominal Pain, Diarrhea, Constipation, Melena, Hematochezia Musculoskeletal: negative: Neck Pain, Shoulder Pain, Arm Pain, Back Pain, Hand Pain, Leg Pain, Foot Pain Skin: negative: Rash, Lesions, Armond, Bruising Neurological: negative: Weakness, Numbness, Incoordination, Change in Speech, Confusion, Seizures - Medications/Allergies Allergies/Adverse Reactions: Allergies Allergy/AdvReac Type Severity Reaction Status Date / Time No Known Drug Allergies Allergy Verified 08/19/15 00:26 Medications: Current Medications Acetaminophen (Tylenol) 650 mg PO Q6H PRN PRN Reason: Headache/Fever Or Mild Pain Hydrocodone Bitart/Acetaminophen ([place] 5/325) 1 tab PO Q4H PRN PRN Reason: Moderate Pain (4-6) Hydrocodone Bitart/Acetaminophen ([place] 5/325) 2 tab PO Q4H PRN PRN Reason: Severe Pain (7-10) Last Admin: 08/06/17 14:22 Dose: 2 tab Al Hydroxide/Mg Hydroxide (Maalox) 30 ml PO Q4H PRN PRN Reason: Indigestion Al Hydroxide/Mg Hydroxide (Maalox) 30 ml PO Q4H PRN PRN Reason: Indigestion Albuterol/Ipratropium (Duoneb) 3 ml NEB [id number] PRN PRN Reason: SHORTNESS OF BREATH Artificial Tears (Tears Naturale) 0 drop EA EYE PRN PRN PRN Reason: Dry Eyes Aspirin (Aspirin) 325 mg PO DAILY [facility] Last Admin: 08/06/17 08:30 Dose: 325 mg Atorvastatin Calcium (Lipitor) 20 mg PO HS [facility] Last Admin: 08/05/17 20:11 Dose: 20 mg Bisacodyl (Dulcolax) 10 mg PO Q12H PRN PRN Reason: Constipation Bisacodyl (Dulcolax) 10 mg SC Q12H PRN PRN Reason: Constipation Diphenhydramine HCl (Benadryl) 25 mg PO Q6H PRN PRN Reason: Itching & Insomnia or Loco Kiet Guaifenesin/Dextromethorphan (Robitussin Dm) 15 ml PO Q4H PRN PRN Reason: Cough Levothyroxine Sodium (Synthroid) 25 mcg PO 0600 [facility] Last Admin: 08/06/17 05:14 Dose: 25 mcg Lisinopril (Zestril) 10 mg PO DAILY [facility] Last Admin: 08/06/17 09:00 Dose: 10 mg Metoprolol Tartrate (Lopressor) 25 mg PO BID [facility] Last Admin: 08/06/17 08:30 Dose: 25 mg Mineral Oil (Fleet Mineral Oil) 133 ml SC DAILYPRN PRN PRN Reason: Constipation Nicotine (Nicoderm Patch) 14 mg TD Q24HR [facility] Last Admin: 08/06/17 15:44 Dose: 14 mg Nitroglycerin (Nitrostat) 0.4 mg SL Q5MIN PRN PRN Reason: Chest Pain Ondansetron HCl (Zofran) 4 mg IVP Q6H PRN PRN Reason: Nausea/Vomiting Sodium Chloride (Flush - Normal Saline) 10 ml IVF PRN PRN PRN Reason: Saline Flush Zolpidem Tartrate (Ambien) 5 mg PO HSPRN PRN PRN Reason: Insomnia
[2017-08-06] MEDS: Atorvastatin Calcium 20 MG TAB PO SCH (21:57)
[2017-08-06] MEDS: Zolpidem Tartrate 5 MG TAB PO PRN (21:58)
[2017-08-07] MEDS: HYDROcodone/Acetaminophen 5/325 mg Tablet PO PRN ×4 (02:55→17:47)
[2017-08-07 05:51] LABS: #Eosinphils 0.1 thou/uL (0.0-0.7); #Lymphocytes 1.5 thou/uL (1.20-3.40); #Monocytes 1.1 thou/uL (0.11-0.59); #Neutrophils 9.5 thou/uL (1.40-6.50); %Basophils 0.2 % (0.0-1.0); %Eosinophils 0.9 % (0.0-10.0); %Lymphocytes 12.2 % (21.0-51.0); %Monocytes 8.9 % (0.0-10.0); %Neutrophils 77.9 % (42.0-75.0); Hemoglobin 9.8 g/dL (14.0-18.0); Mean Corpuscular HGB CONC 34.3 g/dL (32.0-36.0); Mean Corpuscular Hemoglobin 31.3 pg (27.0-31.0); Mean Corpuscular Volume 91.3 fl (80.0-94.0); Mean Platelet Volume 7.3 fL (7.4-10.4); Platelet Count 183 thou/uL (130-400); RBC Distribution Width 12.1 % (11.5-14.5); Red Blood Cell (RBC) Count 3.13 mill/uL (4.70-6.10); White Blood Cell (WBC) Count 12.2 thou/uL (4.8-10.8)
[2017-08-07 06:04] LABS: Anion Gap 10 mmol/L (10-20); BUN (Urea Nitrogen) 21 mg/dL (8.4-25.7); Calc. Creatinine Clearance 140 mL/min (70-130); Calcium 8.5 mg/dL (7.8-10.44); Carbon Dioxide 24 mmol/L (22-29); Chloride 104 mmol/L (98-107); Estimated GFR-MDRD Greater than 90; Glucose 118 mg/dL (70-105); Potassium 4.1 mmol/L (3.5-5.1)
[2017-08-07 06:22] LABS: Sodium 134 mmol/L (136-145)
[2017-08-07] MEDS: Levothyroxine Sodium 25 MCG TAB PO SCH (06:29)
[2017-08-07] MEDS: Aspirin 325 MG TAB PO SCH (08:00)
[2017-08-07] MEDS: Lisinopril 10 MG TAB PO SCH (08:00)
[2017-08-07] MEDS: Metoprolol Tartrate 25 MG TAB PO SCH ×2 (08:03→21:15)
--- NOTE | 2017-08-07 08:47 | RAD ---
CHEST 1 VIEW: COMPARISON: 08/06/17. HISTORY: Status post open heart surgery. FINDINGS: Stable sternotomy wires. Stable left-sided chest tube, right-sided central venous catheter. Stable parenchymal changes. No pneumothorax. IMPRESSION: Stable postoperative change. POS: [facility]
--- NOTE | 2017-08-07 15:29 | PDOC.PN ---
- Subjective Encounter Start Date: 08/07/17 Encounter Start Time: 07:20 Pt seen for followup re: NSTEMI. Denies chest pain or shortness of breath. - Objective MAR Reviewed: Yes Vital Signs & Weight: Vital Signs (12 hours) Temp Pulse Resp BP BP BP Pulse Ox 08/07/17 11:59 98.2 F 98 16 135/86 96 08/07/17 08:00 99.3 F 102 H 16 132/73 132/73 94 L 08/07/17 04:00 99.4 F 101 H 20 111/71 92 L Weight Weight 194 lb Most Recent Monitor Data Heart Rate from ECG 112 NIBP 120/83 NIBP BP-Mean 99 Respiration from ECG 22 SpO2 93 I&O: 08/06/17 08/07/17 08/08/17 06:59 06:59 06:59 Intake Total 1782.7 670 600 Output Total 3700 410 30 Balance -1917.3 260 570 Result Diagrams: 08/07/17 05:03 08/07/17 05:03 EKG Reviewed by me: Yes (Tele: NSR) Phys Exam - Physical Examination Obese HEENT: moist MMs, sclera anicteric, oral pharynx no lesions, 2+ tonsils Neck: supple Respiratory: no wheezing, no rales, no rhonchi, clear to auscultation bilateral Cardiovascular: RRR, no rub S1, S2 Gastrointestinal: soft, non-tender, no distention, positive bowel sounds Musculoskeletal: pulses present Neurological: moves all 4 limbs Lymphatic: no nodes Psychiatric: normal affect, A&O x 3 Dx/Plan (1) NSTEMI (non-ST elevated myocardial infarction) Code(s): I21.4 - NON-ST ELEVATION (NSTEMI) MYOCARDIAL INFARCTION Status: Acute Comment: Continue aspirin, beta fercho, statin and ACEI. s/p CABG. (2) HLD (hyperlipidemia) Code(s): E78.5 - HYPERLIPIDEMIA, UNSPECIFIED Status: Chronic Comment: on statin and gemfibrozil (3) Tobacco abuse Code(s): Z72.0 - TOBACCO USE Status: Chronic Comment: on nicotine patch (4) HTN (hypertension) Code(s): I10 - ESSENTIAL (PRIMARY) HYPERTENSION Status: Chronic Comment: off of pressors. Monitor vital signs, titrate antihypertensives as needed. (5) Insomnia Code(s): G47.00 - INSOMNIA, UNSPECIFIED Status: Acute Comment: continue PRN melatonin - Plan * . Review of Systems - Review of Systems Constitutional: negative: fever, chills, sweats, weakness, malaise Respiratory: negative: Cough, Dry, Shortness of Breath, Hemoptysis, SOB with Excertion, Pleuritic Pain, Sputum, Wheezing Cardiovascular: negative: chest pain, palpitations, orthopnea, paroxysmal nocturnal dyspnea, edema, light headedness Genitourinary: negative: Dysuria, Frequency, Incontinence, Hematuria, Retention Neurological: negative: Weakness, Numbness, Incoordination, Change in Speech, Confusion, Seizures - Medications/Allergies Allergies/Adverse Reactions: Allergies Allergy/AdvReac Type Severity Reaction Status Date / Time No Known Drug Allergies Allergy Verified 08/19/15 00:26 Medications: Current Medications Acetaminophen (Tylenol) 650 mg PO Q6H PRN PRN Reason: Headache/Fever Or Mild Pain Hydrocodone Bitart/Acetaminophen (Hailey 5/325) 1 tab PO Q4H PRN PRN Reason: Moderate Pain (4-6) Hydrocodone Bitart/Acetaminophen ([place]iley 5/325) 2 tab PO Q4H PRN PRN Reason: Severe Pain (7-10) Last Admin: 08/07/17 12:18 Dose: 2 tab Al Hydroxide/Mg Hydroxide (Maalox) 30 ml PO Q4H PRN PRN Reason: Indigestion Al Hydroxide/Mg Hydroxide (Maalox) 30 ml PO Q4H PRN PRN Reason: Indigestion Albuterol/Ipratropium (Duoneb) 3 ml NEB [id number] PRN PRN Reason: SHORTNESS OF BREATH Artificial Tears (Tears Naturale) 0 drop EA EYE PRN PRN PRN Reason: Dry Eyes Aspirin (Aspirin) 325 mg PO DAILY [facility] Last Admin: 08/07/17 08:00 Dose: 325 mg Atorvastatin Calcium (Lipitor) 20 mg PO HS [facility] Last Admin: 08/06/17 21:57 Dose: 20 mg Bisacodyl (Dulcolax) 10 mg PO Q12H PRN PRN Reason: Constipation Last Admin: 08/07/17 11:00 Dose: 10 mg Bisacodyl (Dulcolax) 10 mg WI Q12H PRN PRN Reason: Constipation Diphenhydramine HCl (Benadryl) 25 mg PO Q6H PRN PRN Reason: Itching & Insomnia or Loco Kiet Guaifenesin/Dextromethorphan (Robitussin Dm) 15 ml PO Q4H PRN PRN Reason: Cough Levothyroxine Sodium (Synthroid) 25 mcg PO 0600 [facility] Last Admin: 08/07/17 06:29 Dose: 25 mcg Lisinopril (Zestril) 10 mg PO DAILY [facility] Last Admin: 08/07/17 08:00 Dose: 10 mg Metoprolol Tartrate (Lopressor) 25 mg PO BID [facility] Last Admin: 08/07/17 08:03 Dose: 25 mg Mineral Oil (Fleet Mineral Oil) 133 ml WI DAILYPRN PRN PRN Reason: Constipation Nicotine (Nicoderm Patch) 14 mg TD Q24HR [facility] Last Admin: 08/06/17 15:44 Dose: 14 mg Nitroglycerin (Nitrostat) 0.4 mg SL Q5MIN PRN PRN Reason: Chest Pain Ondansetron HCl (Zofran) 4 mg IVP Q6H PRN PRN Reason: Nausea/Vomiting Sodium Chloride (Flush - Normal Saline) 10 ml IVF PRN PRN PRN Reason: Saline Flush Last Admin: 08/07/17 08:04 Dose: 10 ml Zolpidem Tartrate (Ambien) 5 mg PO HSPRN PRN PRN Reason: Insomnia Last Admin: 08/06/17 21:58 Dose: 5 mg
--- NOTE | 2017-08-07 15:35 | PDOC.CTH ---
Cardiology Progress Note - Subjective Out of bed, ambulating in room. CT just removed. Denies chest pain, shortness of breath, nausea or vomiting. Working with PT, had BM this morning. Feels good. No overnight events, no cardiac events. - Objective Vital Signs Temp Pulse Resp BP BP BP Pulse Ox 08/07/17 11:59 98.2 F 98 16 135/86 96 08/07/17 08:00 99.3 F 102 H 16 132/73 132/73 94 L 08/07/17 04:00 99.4 F 101 H 20 111/71 92 L Weight 194 lb 08/06/17 08/07/17 08/08/17 06:59 06:59 06:59 Intake Total 1782.7 670 600 Output Total 3700 410 30 Balance -1917.3 260 570 - Physical Examination General/Neuro: alert & oriented x3, NAD Neck: no JVD present Lungs: CTA, unlabored respirations Heart: RRR Abdomen: NT/ND Extremities: + edema B (trace BLE edema) - Telemetry Telemetry Rhythm: SR - Labs Result Diagrams: 08/07/17 05:03 08/07/17 05:03 Troponin/CKMB CK-MB (CK-2) 11.1 ng/mL (0-6.6) H* 07/31/17 19:58 Troponin I 0.931 ng/mL (< 0.028) H* 07/31/17 22:45 - Assessment/Plan 1. NSTEMI 2. Multivessel CAD s/p CABG.-cont ASA, statin, BB. Increase PT as tolerated. 3. Tobacco abuse. 4. HTN-stable, titrate antihypertensives as tolerated 5. Hep C Possibly home tomorrow.
[2017-08-07] MEDS: Nicotine 14 MG PATCH TD SCH (16:48)
--- NOTE | 2017-08-07 21:00 | PRG ---
DATE OF SERVICE: 08/07/2017 SUBJECTIVE: Rober Kearns is sitting side of the bed. He is in no distress. Says he is feeling gre at. He is hoping his chest tubes have come out today. OBJECTIVE: VITAL SIGNS: Afebrile, heart rate 74, respiratory rate 16, oximetry 95 on room air, blood pressure 1 07/69. LUNGS: Clear. HEART: Regular rhythm. ABDOMEN: Soft. LABORATORY DATA: White count 12.2, hemoglobin 9.8, platelets 183. Sodium 134, potassium 4.1, chlori de 104, bicarbonate 24, BUN 21, creatinine 0.75. IMPRESSION: 1. Status post coronary bypass grafting. 2. Sleep apnea. 3. Hypertension. PLAN: Continue current care. We will probably following for another day and then sign off once he i s turning the corner. Once his tubes out, he should improve dramatically.
[2017-08-07] MEDS: Atorvastatin Calcium 20 MG TAB PO SCH (21:15)
[2017-08-07] MEDS: Zolpidem Tartrate 5 MG TAB PO PRN (21:15)
[2017-08-08] MEDS: HYDROcodone/Acetaminophen 5/325 mg Tablet PO PRN ×2 (03:09→08:09)
[2017-08-08] MEDS: Levothyroxine Sodium 25 MCG TAB PO SCH (05:45)
[2017-08-08 05:58] LABS: #Eosinphils 0.3 thou/uL (0.0-0.7); #Lymphocytes 1.4 thou/uL (1.20-3.40); #Monocytes 0.9 thou/uL (0.11-0.59); %Basophils 0.1 % (0.0-1.0); %Eosinophils 3.2 % (0.0-10.0); %Lymphocytes 16.7 % (21.0-51.0); %Monocytes 9.9 % (0.0-10.0); Hemoglobin 9.5 g/dL (14.0-18.0); Mean Corpuscular Hemoglobin 31.9 pg (27.0-31.0); Mean Platelet Volume 7.8 fL (7.4-10.4); Platelet Count 224 thou/uL (130-400); Red Blood Cell (RBC) Count 2.97 mill/uL (4.70-6.10); White Blood Cell (WBC) Count 8.6 thou/uL (4.8-10.8)
[2017-08-08 06:10] LABS: Anion Gap 9 mmol/L (10-20); BUN (Urea Nitrogen) 19 mg/dL (8.4-25.7); Calc. Creatinine Clearance 146 mL/min (70-130); Calcium 8.1 mg/dL (7.8-10.44); Carbon Dioxide 24 mmol/L (22-29); Chloride 102 mmol/L (98-107); Estimated GFR-MDRD Greater than 90; Glucose 90 mg/dL (70-105); Potassium 3.4 mmol/L (3.5-5.1); Sodium 132 mmol/L (136-145)
[2017-08-08 07:48] VITALS: TEMP 98.8
[2017-08-08] MEDS: Aspirin 325 MG TAB PO SCH (08:08)
[2017-08-08] MEDS: Lisinopril 10 MG TAB PO SCH (08:08)
[2017-08-08] MEDS: Metoprolol Tartrate 25 MG TAB PO SCH (08:09)
--- NOTE | 2017-08-08 12:03 | DIS ---
DATE OF ADMISSION: 07/31/2017 DATE OF DISCHARGE: 08/08/2017 PRINCIPAL DIAGNOSES: Coronary artery disease with non-ST elevation myocardial infarction. SECONDARY DIAGNOSES: Hypertension, hypothyroidism, hepatitis C. PROCEDURES PERFORMED: Cardiac catheterization on 08/02/2017, coronary artery bypass grafting x5 with left internal mammary artery to the LAD, reverse greater saphenous vein graft from the aorta to the PDA into the second obtuse marginal, reverse saphenous vein graft from the OM2 graft to the second di agonal and left radial artery graft from the aorta to the first obtuse marginal, 08/04/2017. HISTORY OF PRESENT ILLNESS AND HOSPITAL COURSE: The patient is a 52-year-old smoker with a strongly positive family history of premature coronary artery disease who had been having class 2-3 a ngina for the last 2-3 months. He had a protracted episode and presented to the emergency room and r uled in for myocardial infarction. Cardiac catheterization demonstrated 3-vessel coronary artery dis ease with preserved LV systolic function. He underwent surgical revascularization and had an uncompl icated postoperative course. He was extubated the evening of surgery. He was a bit tachycardic and beta blockers were started even though he remained slightly pressor dependent. His Levophed was wean ed off the night postoperative day #1 and he was transferred out of the intensive care unit on postop erative day #2. His chest tubes were removed on postoperative day #3. As his blood pressures crept up and his heart rate remained in the 90-110 ranges, beta blockers were increased. He is now being d ischarged home with a prescription for Vicodin as needed for pain, lisinopril 10 mg a day, Lopressor 50 mg twice a day, Lipitor 20 mg at bedtime. He has taken aspirin a day and continue his home dose o f Synthroid. He has been given a Nicoderm patch prescription. He was counseled on smoking cessation . I will plan on seeing him in the office in roughly ten days' time for wound check.
[2017-08-08 12:37] VITALS: BP 128/73
[2017-08-08] MEDS ORDERED: Potassium Chloride 20 MEQ TAB PO SCH (12:45)
--- NOTE | 2017-08-08 13:46 | PRG ---
DATE OF SERVICE: 08/08/2017 SUBJECTIVE: He has had no complaints. OBJECTIVE: VITAL SIGNS: He is afebrile, heart rate 98, respiratory rate 20, oximetry is 99 on room air, blood p ressure 110/70. LUNGS: Clear. HEART: Regular rhythm. ABDOMEN: Soft. LABORATORY DATA: White count 8.6, hemoglobin 9.5, platelets 224. Electrolytes are unremarkable. He said he had nightmare last night. He slept with a nicotine patch on. I have instructed him to re move this at bedtime if he byes and when he leaves. IMPRESSION: 1. Status post coronary artery bypass grafting, clinically stable. 2. Nightmares secondary to his nicotine patch. PLAN: Follow up as needed in the future.
[2017-08-08] MEDS ORDERED: Metoprolol Tartrate 50 MG TAB PO SCH (21:00)
--- NOTE | 2017-08-08 21:09 | DIS ---
DATE OF ADMISSION: 07/31/2017 DATE OF DISCHARGE: 08/08/2017 PRIMARY CARE PROVIDER: [facility] Sean. DISCHARGE DIAGNOSES: 1. Non-ST elevation myocardial infarction. 2. Coronary artery disease. 3. Tobacco abuse. CONDITION OF PATIENT ON THE DAY OF DISCHARGE: Stable. I assessed Mr. Kearns on the day of discharge . He denies any chest pain or shortness of breath. Vital signs are stable. S1 and S2 are heard, re gular. Lungs are clear to auscultation bilaterally. CONSULTATIONS DURING THIS HOSPITALIZATION: Cardiology, Dr. Sheffield; Cardiovascular Surgery, Dr. Nikhil uriarte; and Pulmonology, Dr. Ryan Beckwith. HOSPITAL COURSE: Mr. Kearns is a pleasant 52-year-old gentleman, who was admitted to [facility] on 07/31/2017 for non-ST elevation myocardial infarction. He was seen by Cardiolo gy service and underwent cardiac catheterization on 08/02/2017. He was found to have an occluded RCA ; severe ostial LAD and mid LAD; severe diagonal, small; patent dominant left circumflex with mild di sease, mid vessel; left to right collaterals; normal LV function and no LV to aortic gradient. Cardi ovascular Surgery was consulted. On 08/04/2017, he underwent coronary artery bypass grafting x5 with left internal mammary artery to the LAD, reverse greater saphenous vein graft from the aorta to the PDA and to the second obtuse marginal, reverse greater saphenous vein graft from the OM2 graft to the second diagonal, left radial artery from the aorta to the OM1. He was initially monitored in the critical care unit following bypass graft surgery. He was subseque ntly transferred to the monitored floor. He had the chest tubes removed on 08/07/2017. He was disch arged by Cardiovascular Surgery on 08/08/2017. DISCHARGE MEDICATIONS: Include aspirin 325 mg daily, Lipitor 20 mg at bedtime, gemfibrozil 600 mg 2 times a day, [place] p.r.n., ibuprofen 600 mg 2 times a day, Synthroid 25 mcg daily, lisinopril 10 mg d aily, Lopressor 50 mg 2 times a day, nicotine 14 mg patch daily and ranitidine 150 mg 2 times a day. Many thanks for allowing me to participate in your patient's care. Please feel free to contact me wi th any questions or concerns. On the day of discharge, Mr. Kearns has a white count of 8600, hemoglobin 9.5, platelet count 224,000 . Sodium 132, potassium 3.4, which is being replaced, and creatinine 0.72. He had a triglyceride 60 9, cholesterol 126, and HDL cholesterol 27. DISCHARGE DESTINATION: Home. TOTAL AMOUNT OF TIME SPENT COORDINATING THIS DISCHARGE: 33 minutes.
== END 2017-08-08 12:54 | disposition home or self-care (01) | DRG 233 ==
LOC: ERS 16:27 → OBSVTOIN 20:20 → 2SW 20:20 → ERHOLD 20:50 → 2NO 21:30 → CCU 08-04 11:31 → 2SE 08-06 09:25
PROVIDERS: ADMIT Internal Medicine; ATTEND Internal Medicine
PROC: 4A023N7 Measurement of Cardiac Sampling and Pressure, Left Heart, Percutaneous Approach (ICD-10-PCS; principal; 2017-08-02)
PROC: 021109W Bypass Coronary Artery, Two Arteries from Aorta with Autologous Venous Tissue, Open Approach (ICD-10-PCS; 2017-08-04)
PROC: 0210093 Bypass Coronary Artery, One Artery from Coronary Artery with Autologous Venous Tissue, Open Approach (ICD-10-PCS; 2017-08-04)
PROC: 06BQ4ZZ Excision of Left Saphenous Vein, Percutaneous Endoscopic Approach (ICD-10-PCS; 2017-08-04)
PROC: 02100AW Bypass Coronary Artery, One Artery from Aorta with Autologous Arterial Tissue, Open Approach (ICD-10-PCS; 2017-08-04)
PROC: 03BC0ZZ Excision of Left Radial Artery, Open Approach (ICD-10-PCS; 2017-08-04)
PROC: 02100Z9 Bypass Coronary Artery, One Artery from Left Internal Mammary, Open Approach (ICD-10-PCS; 2017-08-04)
PROC: B2111ZZ Fluoroscopy of Multiple Coronary Arteries using Low Osmolar Contrast (ICD-10-PCS; 2017-08-04)
PROC: B2151ZZ Fluoroscopy of Left Heart using Low Osmolar Contrast (ICD-10-PCS; 2017-08-04)
PROC: 5A1221Z Performance of Cardiac Output, Continuous (ICD-10-PCS; 2017-08-04)
PROC: 05HY33Z Insertion of Infusion Device into Upper Vein, Percutaneous Approach (ICD-10-PCS; 2017-08-04)
DX: I25.10 Atherosclerotic heart disease of native coronary artery without angina pectoris (principal); I21.4 Non-ST elevation (NSTEMI) myocardial infarction; B18.8 Other chronic viral hepatitis; F17.210 Nicotine dependence, cigarettes, uncomplicated; I10 Essential (primary) hypertension; B19.20 Unspecified viral hepatitis C without hepatic coma; E78.5 Hyperlipidemia, unspecified; G47.00 Insomnia, unspecified; E66.9 Obesity, unspecified; Z68.33 Body mass index [BMI] 33.0-33.9, adult; F14.10 Cocaine abuse, uncomplicated; E03.9 Hypothyroidism, unspecified; F51.5 Nightmare disorder; G47.8 Other sleep disorders; T50.995A Adverse effect of other drugs, medicaments and biological substances, initial encounter; G47.33 Obstructive sleep apnea (adult) (pediatric)
CPT/HCPCS: 36415; 36416; 71045; 80048; 80053; 80061; 80306; 82550; 82553; 82805; 83690; 83880; 84484; 85025; 85379; 85610; 85730; 86850; 86900; 86901; 93005; 93010; 93306; 93458; 93798; 94002; 94150; 94760; 96372; 96374; A4216; C1769; J0171; J1265; J1642; J1644; J1650; J1815; J1885; J2001; J2250; J2270; J2440; J2704; J2720; J2930; J3010; J3475; J3480; J7050; P9045; S0017

== ENCOUNTER 2018-05-10 01:43 | Emergency (ER) | payer SELFPAY ==
[2018-05-10 02:23] LABS: #Eosinphils 0.1 thou/uL (0.0-0.7); #Lymphocytes 1.2 thou/uL (1.20-3.40); #Monocytes 0.7 thou/uL (0.11-0.59); %Basophils 0.3 % (0.0-1.0); %Eosinophils 0.5 % (0.0-10.0); %Lymphocytes 12.3 % (21.0-51.0); %Monocytes 6.7 % (0.0-10.0); %Neutrophils 80.2 % (42.0-75.0); Hemoglobin 17.3 g/dL (14.0-18.0); Mean Corpuscular HGB CONC 33.6 g/dL (32.0-36.0); Mean Corpuscular Hemoglobin 30.8 pg (27.0-31.0); Mean Corpuscular Volume 91.6 fL (78.0-98.0); Mean Platelet Volume 7.7 fL (7.4-10.4); Platelet Count 222 thou/uL (130-400); RBC Distribution Width 13.1 % (11.5-14.5); Red Blood Cell (RBC) Count 5.61 mill/uL (4.70-6.10)
[2018-05-10 02:42] LABS: ALT (SGPT) 51 U/L (8-55); AST (SGOT) 36 U/L (5-34); Albumin 4.2 g/dL (3.5-5.0); Alkaline Phosphatase 141 U/L (40-150); Anion Gap 14 mmol/L (10-20); BUN (Urea Nitrogen) 29 mg/dL (8.4-25.7); Bilirubin, Total 0.7 mg/dL (0.2-1.2); Calc. Creatinine Clearance 0 mL/min (70-130); Calcium 9.8 mg/dL (7.8-10.44); Carbon Dioxide 26 mmol/L (22-29); Chloride 102 mmol/L (98-107); Estimated GFR-MDRD 68; Globulin 3.4 g/dL (2.4-3.5); Glucose 104 mg/dL (70-105); Potassium 4.6 mmol/L (3.5-5.1); Protein, Total 7.6 g/dL (6.0-8.3); Sodium 137 mmol/L (136-145)
[2018-05-10] MEDS ORDERED: Dicyclomine 20 MG TAB ONE (05:40)
--- NOTE | 2018-05-10 07:41 | CT ---
CT OF THE ABDOMEN AND PELVIS WITH IV CONTRAST: Date: 05/10/18 INDICATION: Epigastric abdominal pain. COMPARISON: Prior exam dated 02/18/14. FINDINGS: There is mild subsegmental volume loss seen within the region of the lingula, slightly more pronounce d on the prior exam. There is moderate to prominent fatty liver. Gallbladder is decompressed. Pancreas and adrenal glands are normal appearing. The spleen is normal appearing. There are small cysts involving the left and right kidney. No free fluid or enlarged lymph nodes are evident. There are a few shotty appearing lymph nodes seen within the mesentery, which are stable. The bladder is decompressed. The colon is largely decompressed. There are a few scattered diverticula involving the colon. There is fluid density present in portions of the cecum, ascending colon, and p roximal transverse colon. Small bowel is of normal caliber. There is scattered degenerative and osteoarthritic change. IMPRESSION: 1. Fluid density present within the right aspect of the colon can be seen with diarrheal states and a mild colitis. 2. Prominent fatty liver. 3. Renal cysts. 4. Colonic diverticulosis. 5. Lingular subsegmental atelectasis. POS: BH
--- NOTE | 2018-05-10 07:59 | RAD ---
PORTABLE CHEST ONE VIEW: Date: 05-10-18 Time: 3:38 a.m. History: Chest pain. FINDINGS/IMPRESSION: Comparison made with exam of 08-06-17. Changes of median sternotomy again noted. The heart size is borderline. No focal areas of consolidati on, pneumothoraces, jose pulmonary edema or pleural effusions are seen. There is a calcified granulo ma in the right upper lobe. POS: OFF
[2018-05-10] MEDS ORDERED: Iopamidol 370 76% 100 ML VIAL ONE (09:27)
== END 2018-05-10 06:50 | disposition home or self-care (01) ==
LOC: ERS 01:43
DX: K52.9 Noninfective gastroenteritis and colitis, unspecified (principal); K76.89 Other specified diseases of liver; Z71.6 Tobacco abuse counseling; E78.5 Hyperlipidemia, unspecified; I10 Essential (primary) hypertension; F17.210 Nicotine dependence, cigarettes, uncomplicated; Z79.82 Long term (current) use of aspirin; Z79.899 Other long term (current) drug therapy
CPT/HCPCS: 36415; 71045; 74177; 80053; 83690; 84484; 85025; 93005; 99406; Q9967

== ENCOUNTER 2019-09-16 14:14 | Emergency (ER) | payer MEDICAID, OTHER ==
--- NOTE | 2019-09-16 15:39 | CT ---
EXAM: CT brain without contrast HISTORY: Hit face on a counter during a coughing fit with loss of consciousness COMPARISON: 10/22/2010 TECHNIQUE: Multiple contiguous axial images were obtained and a CT of the brain without contrast. FINDINGS: There are subtle scattered hypodensities in the subcortical and periventricular white matte r consistent with small vessel ischemic disease. There is no evidence of hydrocephalus, intracranial hemorrhage, or extra-axial fluid collection. The calvarium and overlying soft tissues are unremarkable. The visualized paranasal sinuses and masto id air cells are well aerated. IMPRESSION: No evidence of acute intracranial abnormality
[2019-09-16] MEDS ORDERED: Adacel (T-DAP) 0.5 ML SYRINGE ONE (15:52)
[2019-09-16] MEDS ORDERED: Acetaminophen 500 MG TAB ONE (15:52)
[2019-09-16 16:02] LABS: #Eosinphils 0.2 thou/uL (0.0-0.7); #Lymphocytes 1.9 thou/uL (1.20-3.40); #Monocytes 0.7 thou/uL (0.11-0.59); #Neutrophils 7.3 thou/uL (1.40-6.50); %Basophils 0.3 % (0.0-1.0); %Lymphocytes 18.4 % (21.0-51.0); %Monocytes 6.9 % (0.0-10.0); %Neutrophils 72.4 % (42.0-75.0); Hemoglobin 16.2 g/dL (14.0-18.0); Mean Corpuscular HGB CONC 34.5 g/dL (32.0-36.0); Mean Corpuscular Hemoglobin 31.7 pg (27.0-31.0); Mean Corpuscular Volume 91.7 fL (78.0-98.0); Mean Platelet Volume 7.9 fL (7.4-10.4); Platelet Count 217 thou/uL (130-400); RBC Distribution Width 13.4 % (11.5-14.5); Red Blood Cell (RBC) Count 5.12 mill/uL (4.70-6.10); White Blood Cell (WBC) Count 10.1 thou/uL (4.8-10.8)
[2019-09-16 16:19] LABS: ALT (SGPT) 65 U/L (8-55); AST (SGOT) 37 U/L (5-34); Albumin 4.1 g/dL (3.5-5.0); Alkaline Phosphatase 146 U/L (40-110); Anion Gap 13 mmol/L (10-20); BUN (Urea Nitrogen) 25 mg/dL (8.4-25.7); Bilirubin, Total 0.3 mg/dL (0.2-1.2); Calc. Creatinine Clearance 0 mL/min (70-130); Calcium 9.2 mg/dL (7.8-10.44); Carbon Dioxide 24 mmol/L (22-29); Chloride 106 mmol/L (98-107); Estimated GFR-MDRD 73; Globulin 3.5 g/dL (2.4-3.5); Glucose 109 mg/dL (70-105); Potassium 4.3 mmol/L (3.5-5.1); Protein, Total 7.6 g/dL (6.0-8.3); Sodium 139 mmol/L (136-145)
[2019-09-17 11:49] LABS: SARS-CoV-2 MS2 Positive; SARS-CoV-2 N Gene Negative; SARS-CoV-2 S Gene Negative; SARS-CoV-2 orf1ab Negative
== END 2019-09-16 16:41 | disposition home or self-care (01) ==
LOC: ERS 14:14
DX: S05.11XA Contusion of eyeball and orbital tissues, right eye, initial encounter (principal); R05 Cough; I10 Essential (primary) hypertension; F17.210 Nicotine dependence, cigarettes, uncomplicated; E78.5 Hyperlipidemia, unspecified; E78.00 Pure hypercholesterolemia, unspecified; Z79.82 Long term (current) use of aspirin; Z79.899 Other long term (current) drug therapy; W22.03XA Walked into furniture, initial encounter
CPT/HCPCS: 36415; 70450; 80053; 85025; 87635; 90471; 90715; 93005; U0003

== ENCOUNTER 2019-12-19 07:10 | Outpatient (CLI) | payer OTHER ==
[2019-12-19 11:18] LABS: #Basophils 0.1 thou/uL (0.0-0.2); #Eosinphils 0.5 thou/uL (0.0-0.7); #Lymphocytes 2.4 thou/uL (1.20-3.40); #Monocytes 0.8 thou/uL (0.11-0.59); #Neutrophils 8.8 thou/uL (1.40-6.50); %Basophils 0.4 % (0.0-1.0); %Eosinophils 3.9 % (0.0-10.0); %Lymphocytes 19.1 % (21.0-51.0); %Monocytes 6.3 % (0.0-10.0); %Neutrophils 70.3 % (42.0-75.0); Hemoglobin 16.4 g/dL (14.0-18.0); Mean Corpuscular HGB CONC 33.2 g/dL (32.0-36.0); Mean Corpuscular Hemoglobin 31.2 pg (27.0-31.0); Mean Corpuscular Volume 93.9 fL (78.0-98.0); Mean Platelet Volume 8.2 fL (7.4-10.4); Platelet Count 229 thou/uL (130-400); RBC Distribution Width 13.2 % (11.5-14.5); Red Blood Cell (RBC) Count 5.25 mill/uL (4.70-6.10); White Blood Cell (WBC) Count 12.5 thou/uL (4.8-10.8)
[2019-12-19 12:13] LABS: ALT (SGPT) 50 U/L (8-55); AST (SGOT) 24 U/L (5-34); Albumin 4.4 g/dL (3.5-5.0); Alkaline Phosphatase 140 U/L (40-110); Anion Gap 17 mmol/L (10-20); BUN (Urea Nitrogen) 19 mg/dL (8.4-25.7); Bilirubin, Total 0.5 mg/dL (0.2-1.2); Calc. Creatinine Clearance 0 mL/min (70-130); Calcium 9.6 mg/dL (7.8-10.44); Carbon Dioxide 24 mmol/L (22-29); Cardiac Risk 5.2 (Less than 4.5); Chloride 102 mmol/L (98-107); Cholesterol 120 mg/dl (< 200 Desired); Estimated GFR-MDRD 67; Globulin 3.2 g/dL (2.4-3.5); Glucose 98 mg/dL (70-105); HDL Cholesterol 23 mg/dL (>60 Neg Risk); LDL Cholesterol, Calculated 29 mg/dL; Potassium 4.8 mmol/L (3.5-5.1); Protein, Total 7.6 g/dL (6.0-8.3); Sodium 138 mmol/L (136-145); Triglycerides 342 mg/dL (Less than 150)
[2019-12-19 17:03] LABS: SARS-CoV-2 MS2 Positive; SARS-CoV-2 N Gene Negative; SARS-CoV-2 S Gene Negative; SARS-CoV-2 by NAA Not Detected (NotDetected); SARS-CoV-2 orf1ab Negative
== END 2019-12-19 07:11 | disposition home or self-care (01) ==
LOC: LABBT 07:10
PROVIDERS: ATTEND Internal Medicine Cardiovascular Disease
DX: Z01.812 Encounter for preprocedural laboratory examination (principal); Z20.828 Contact with and (suspected) exposure to other viral communicable diseases
CPT/HCPCS: 80053; 80061; 85025; 87635; U0003

== ENCOUNTER 2019-12-22 08:49 | Day surgery (SDC) | payer OTHER ==
[2019-12-20 14:48] VITALS: BMI 40.7
[2019-12-22] MEDS ORDERED: Iopamidol 370 76% 100 ML VIAL ONE (09:29)
[2019-12-22] MEDS ORDERED: Iopamidol 370 76% 50 ML VIAL FS ONE (09:29)
[2019-12-22] MEDS ORDERED: Lidocaine 1% (PF) 30 ML VIAL ONE (09:44)
[2019-12-22] MEDS ORDERED: Fentanyl 100 MCG/2 ML VIAL ONE (10:37)
[2019-12-22] MEDS ORDERED: Midazolam HCl 2 mg/2 ml Vial ONE (10:37)
[2019-12-22] MEDS ORDERED: Heparin 10,000 UNITS/ 10 ML VIAL ONE (11:07)
--- NOTE | 2019-12-24 13:09 | EKG ---
Test Reason : PREOP Blood Pressure : / mmHG Vent. Rate : 061 BPM Atrial Rate : 061 BPM P-R Int : 186 ms QRS Dur : 080 ms QT Int : 428 ms P-R-T Axes : 067 048 093 degrees QTc Int : 430 ms Normal sinus rhythm Cannot rule out Inferior infarct , age undetermined T wave abnormality, consider lateral ischemia Abnormal ECG Confirmed by ALICE GARRISON MD ([id number]) on 12/24/2019 1:08:34 PM Referred By: JUDE Confirmed By:ALICE GARRISON MD
--- NOTE | 2019-12-24 13:09 | EKG ---
Test Reason : POST ANGIOPLASTY Blood Pressure : / mmHG Vent. Rate : 072 BPM Atrial Rate : 072 BPM P-R Int : 180 ms QRS Dur : 080 ms QT Int : 426 ms P-R-T Axes : 066 040 083 degrees QTc Int : 466 ms Normal sinus rhythm Cannot rule out Inferior infarct (cited on or before 22-DEC-2019) Abnormal ECG When compared with ECG of 22-DEC-2019 09:43, (Unconfirmed) No significant change was found Confirmed by ALICE GARRISON MD ([id number]) on 12/24/2019 1:09:26 PM Referred By: JUDE Confirmed By:ALICE GARRISON MD
--- NOTE | 2019-12-27 22:32 | CCLSPC ---
DIAGNOSTIC PROCEDURES PERFORMED: 1. Selective right common femoral angiography with runoffs. 2. Percutaneous transluminal angioplasty to the right common femoral artery with a 5.0 x 20 mm balloon. 3. Percutaneous transluminal angioplasty to the ostium of the right superficial femoral artery with a 5.0 x 20 mm [place] balloon. ESTIMATED BLOOD LOSS: 20 mL. COMPLICATIONS: None apparent. SAMPLES OBTAINED: ACTs were adequate. 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 SUMMARY: Mr. Kearns is a pleasant, 54-year-old, gentleman, who comes to the catheterization lab for a planned intervention on the leg. He had intervention on his left leg. He had ostial SFA disease, and he had significant improvement in his symptoms after balloon angioplasty. We had taken pictures of the right side as well. He had severe disease in the CASING SEWER and the ostium of the SFA, so he was brought back today for intervention on this area. He was prepped and draped in the usual sterile fashion. Consents were signed and verified. Time-out was performed. Access was obtained with a 5 [place] sheath on the left femoral artery with ultrasound guidance. We then advanced an Omni Flush catheter, and with a stiff angled Glidewire, we floated the wire into the right iliac system and into the femoral system down to the distal SFA. We then exchanged the 5-[place] sheath to a 6-[place] Destination sheath and selectively engaged the common femoral artery on the right and selective angiography was done. We then advanced a 5.0 x 20 mm [place] balloon and did balloon angioplasty of the right common femoral artery with good results. We then advanced the same balloon and did balloon angioplasty of the ostium of the SFA with good results. Post procedure angiography showed very good results. No dissection or perforation. RECOMMENDATIONS: 1. Continue optimal medical therapy and risk factor modification. 2. Bedrest and ambulation. 3. Discharged home. Follow up in the office in 4 weeks. Job ID: [id number]
== END 2019-12-22 16:26 | disposition home or self-care (01) ==
LOC: CCL 08:49
PROVIDERS: ATTEND Internal Medicine Cardiovascular Disease
PROC: 047K3ZZ Dilation of Right Femoral Artery, Percutaneous Approach (ICD-10-PCS; principal; 2019-12-22)
DX: I73.9 Peripheral vascular disease, unspecified (principal); I10 Essential (primary) hypertension; I25.10 Atherosclerotic heart disease of native coronary artery without angina pectoris; E78.5 Hyperlipidemia, unspecified; E07.9 Disorder of thyroid, unspecified; F17.210 Nicotine dependence, cigarettes, uncomplicated; G47.30 Sleep apnea, unspecified; B18.2 Chronic viral hepatitis C; Z79.82 Long term (current) use of aspirin; Z79.899 Other long term (current) drug therapy; Z95.1 Presence of aortocoronary bypass graft
CPT/HCPCS: 37220; 77002; 85347; 93005; 93010; 99152; 99153; J1644; J2001; J2250; J3010; Q9967

== ENCOUNTER 2020-01-26 06:38 | Outpatient (CLI) | payer OTHER ==
[2020-01-26 17:49] LABS: SARS-CoV-2 MS2 Positive; SARS-CoV-2 N Gene Negative; SARS-CoV-2 S Gene Negative; SARS-CoV-2 by NAA Not Detected (NotDetected); SARS-CoV-2 orf1ab Negative
== END 2020-01-26 06:39 | disposition home or self-care (01) ==
LOC: LABBT 06:38
PROVIDERS: ATTEND Internal Medicine
DX: K59.00 Constipation, unspecified (principal); K21.9 Gastro-esophageal reflux disease without esophagitis; Z12.11 Encounter for screening for malignant neoplasm of colon; Z20.828 Contact with and (suspected) exposure to other viral communicable diseases
CPT/HCPCS: 87635; U0003

== ENCOUNTER 2020-01-31 07:52 | Day surgery (SDC) | payer OTHER ==
[2020-01-30 13:22] VITALS: BMI 41.1
[2020-01-31] MEDS ORDERED: Ketamine 50 MG/ML (10ML VIAL) ONE (08:48)
[2020-01-31] MEDS ORDERED: Midazolam HCl 2 mg/2 ml Vial ONE (08:48)
[2020-01-31] MEDS ORDERED: PROPOFOL 200 MG/20 ML VIAL ONE (09:05)
--- NOTE | 2020-01-31 10:09 | OP ---
DATE OF PROCEDURE: 01/31/2020 PROCEDURE PERFORMED: Colonoscopy with polypectomy. INDICATIONS FOR PROCEDURE: Screening for malignant neoplasm of the colon (average risk), this is the patient's 1st colonoscopy. DESCRIPTION OF PROCEDURE: After the risks and benefits of the procedure were explained to the patient including risks of bleeding, infection, perforation, reactions to anesthesia, aspiration and/or pain, informed consent was obtained. The patient was then taken to the endoscopy suite, where he was maneuvered into the left lateral decubitus position, followed by introduction of deep sedation via propofol and anesthesia support. Once adequate sedation was achieved, a digital rectal examination was performed followed by introduction of the standard colonoscope, which was then advanced to the terminal ileum without difficulty with adequate visualization of the colonic mucosa achieved. The quality of the prep was good with a small amount of retained liquid stool seen in the right colon that was amenable to irrigation and suctioning. The patient tolerated the procedure well with no immediate perioperative complications. Upon conclusion of the procedure, all equipment was removed. The patient was transferred to Day Stay in satisfactory condition. FINDINGS: Digital rectal exam, normal findings were seen on external examination with slightly increased rectal tone. Colon findings: Normal-appearing mucosa was seen within the terminal ileum as well as at the appendiceal orifice and ileocecal valve. Normal-appearing mucosa was also seen in the cecum, ascending colon, transverse colon, descending colon, and sigmoid colons. A 4 to 5 mm semipedunculated polyp was seen in the rectum and completely removed with hot snare polypectomy. It was retrieved and placed in a specimen jar for further evaluation. Small internal hemorrhoids and hypertrophied anal papillae were also seen on rectal retroflexion. IMPRESSION: 1. A 4 to 5 mm semipedunculated polyp in the rectum, status post snare cautery polypectomy. 2. Small internal hemorrhoids. 3. Hypertrophied anal papillae. RECOMMENDATIONS: 1. Would continue the patient on a higher fiber/FODMAP diet. 2. Would follow up on polypectomy results with repeat colonoscopy interval depending on pathology report. If the pathology shows the presence of an adenomatous polyp, I would recommend a repeat colonoscopy in 5 years. 3. Would hold the Clopidogrel for 48 hours, then restart, given the polypectomy performed today and increased risk of bleeding. 4. Would continue all other medications. 5. Follow up in the GI clinic in 3 weeks for further management of his constipation and right lower quadrant abdominal pain. Job ID: [id number]
== END 2020-01-31 10:14 | disposition home or self-care (01) ==
LOC: SDC 07:52
PROVIDERS: ATTEND Internal Medicine
PROC: 0DBP8ZZ Excision of Rectum, Via Natural or Artificial Opening Endoscopic (ICD-10-PCS; principal; 2020-01-31)
DX: Z12.11 Encounter for screening for malignant neoplasm of colon (principal); K62.1 Rectal polyp; K64.8 Other hemorrhoids; K62.89 Other specified diseases of anus and rectum; K59.09 Other constipation; K21.9 Gastro-esophageal reflux disease without esophagitis; F32.9 Major depressive disorder, single episode, unspecified; I10 Essential (primary) hypertension; F17.200 Nicotine dependence, unspecified, uncomplicated; E78.00 Pure hypercholesterolemia, unspecified; Z79.02 Long term (current) use of antithrombotics/antiplatelets; Z79.82 Long term (current) use of aspirin; Z79.899 Other long term (current) drug therapy; Z95.1 Presence of aortocoronary bypass graft
CPT/HCPCS: 88305; J2250; J2704

== ENCOUNTER 2020-06-12 10:21 | Outpatient (CLI) | payer OTHER ==
[~2020-06-12 10:21] MED LIST: Iopamidol-370 76% 500 ML 1 ML ONE
== END 2020-06-12 10:22 | disposition home or self-care (01) ==
LOC: BICCT 10:21
PROVIDERS: ATTEND Internal Medicine Cardiovascular Disease
DX: I73.9 Peripheral vascular disease, unspecified (principal); I70.8 Atherosclerosis of other arteries; I70.1 Atherosclerosis of renal artery
CPT/HCPCS: 75635; 82565

== ENCOUNTER 2020-07-16 10:56 | Observation (INO) | payer OTHER ==
[2020-07-16 11:50] LABS: #Basophils 0.1 thou/uL (0.0-0.2); #Eosinphils 0.5 thou/uL (0.0-0.7); #Lymphocytes 2.1 thou/uL (1.20-3.40); #Monocytes 0.8 thou/uL (0.11-0.59); %Eosinophils 4.2 % (0.0-10.0); %Lymphocytes 16.7 % (21.0-51.0); %Monocytes 6.7 % (0.0-10.0); %Neutrophils 71.5 % (42.0-75.0); Hemoglobin 15.9 g/dL (14.0-18.0); Mean Corpuscular Hemoglobin 31.1 pg (27.0-31.0); Mean Corpuscular Volume 91.3 fL (78.0-98.0); Mean Platelet Volume 7.9 fL (7.4-10.4); Platelet Count 249 thou/uL (130-400); RBC Distribution Width 13.3 % (11.5-14.5); Red Blood Cell (RBC) Count 5.12 mill/uL (4.70-6.10); White Blood Cell (WBC) Count 12.6 thou/uL (4.8-10.8)
[2020-07-16 12:12] LABS: ALT (SGPT) 37 U/L (8-55); AST (SGOT) 24 U/L (5-34); Albumin 4.1 g/dL (3.5-5.0); Alkaline Phosphatase 149 U/L (40-110); Anion Gap 16 mmol/L (10-20); BUN (Urea Nitrogen) 22 mg/dL (8.4-25.7); Bilirubin, Total 0.3 mg/dL (0.2-1.2); Calc. Creatinine Clearance 0 mL/min (70-130); Calcium 10.1 mg/dL (7.8-10.44); Carbon Dioxide 22 mmol/L (22-29); Chloride 103 mmol/L (98-107); Glucose 156 mg/dL (70-105); Potassium 4.2 mmol/L (3.5-5.1); Protein, Total 8.1 g/dL (6.0-8.3); Sodium 137 mmol/L (136-145)
[2020-07-16] MEDS ORDERED: Aspirin Chewable 81 MG TAB ONE (13:28)
[2020-07-16] MEDS ORDERED: Acetaminophen 325 MG TAB PO PRN (15:03)
[2020-07-16] MEDS ORDERED: Dextrose 5% in Water 1,000 ML IV PRN (15:03)
[2020-07-16] MEDS ORDERED: HumaLOG 300 UNITS/3 ML VIAL SC PRN ×2 (15:03)
[2020-07-16] MEDS ORDERED: Dextrose 50% Abboject 50 ML SYRINGE SLOW IVP PRN (15:03)
[2020-07-16 15:47] LABS: Troponin I Less than 0.010 ng/mL (< 0.028)
[2020-07-16] MEDS ORDERED: Nicotine 14 MG PATCH TD SCH (16:00)
[2020-07-16 18:18] LABS: Troponin I Less than 0.010 ng/mL (< 0.028)
[2020-07-16] MEDS ORDERED: Amlodipine 10 MG TAB PO SCH (21:00)
[2020-07-16] MEDS ORDERED: Atorvastatin Calcium 40 MG TAB PO SCH (21:00)
[2020-07-16 22:29] VITALS: BMI 42.7
[2020-07-16 22:38] LABS: SARS-CoV-2 PCR by NAA Not Detected (NotDetected)
[2020-07-17] MEDS: Metoprolol Tartrate 50 MG TAB PO SCH ×3 (00:27→09:05)
[2020-07-17] MEDS: Famotidine 20 MG TAB PO SCH ×3 (00:27→09:05)
[2020-07-17] MEDS ORDERED: Levothyroxine Sodium 25 MCG TAB PO SCH (06:00)
[2020-07-17 08:34] VITALS: TEMP 97.6
[2020-07-17 11:39] VITALS: BP 139/77
== END 2020-07-17 14:50 | disposition home or self-care (01) ==
LOC: SUATTDRO 10:56 → ERS 10:56 → ERHOLD 12:40 → 2SW 21:56
PROVIDERS: ADMIT Internal Medicine; ATTEND Internal Medicine
DX: R07.89 Other chest pain (principal); I10 Essential (primary) hypertension; I25.10 Atherosclerotic heart disease of native coronary artery without angina pectoris; E11.9 Type 2 diabetes mellitus without complications; E78.5 Hyperlipidemia, unspecified; F17.210 Nicotine dependence, cigarettes, uncomplicated; Z79.02 Long term (current) use of antithrombotics/antiplatelets; Z79.82 Long term (current) use of aspirin; Z79.84 Long term (current) use of oral hypoglycemic drugs; Z79.899 Other long term (current) drug therapy; Z95.1 Presence of aortocoronary bypass graft; Z20.822 Contact with and (suspected) exposure to COVID-19
CPT/HCPCS: 36415; 36416; 71045; 80053; 83880; 84484; 85025; 87635; 93005; 94760; G0378; U0003; U0005

== ENCOUNTER 2020-11-01 15:42 | Outpatient (CLI) | payer OTHER ==
[2020-11-01 18:25] LABS: Hemoglobin 15.6 g/dL (13.5-17.5); Mean Corpuscular HGB CONC 33.3 g/dL (32.0-36.0); Mean Corpuscular Hemoglobin 30.1 pg (27.0-33.0); Mean Corpuscular Volume 90.5 fl (81.2-95.1); Mean Platelet Volume 10.8 fl (7.4-10.4); Platelet Count 268 10x3/uL (150-450); RBC Distribution Width 14.1 % (11.5-14.5); Red Blood Cell (RBC) Count 5.18 10x6/uL (4.32-5.72); White Blood Cell (WBC) Count 13.9 10x3/uL (3.5-10.5)
[2020-11-01 18:43] LABS: Anion Gap 18 mmol/L (10-20); BUN (Urea Nitrogen) 22 mg/dL (8.4-25.7); Calc. Creatinine Clearance 0 mL/min (70-130); Calcium 10.6 mg/dL (7.8-10.44); Carbon Dioxide 23 mmol/L (22-29); Chloride 104 mmol/L (98-107); Glucose 114 mg/dL (70-105); Potassium 4.6 mmol/L (3.5-5.1); Sodium 140 mmol/L (136-145)
[2020-11-02 15:25] LABS: SARS-CoV-2 PCR by NAA Not Detected (NotDetected)
== END 2020-11-01 15:43 | disposition home or self-care (01) ==
LOC: LABBT 15:42
PROVIDERS: ATTEND Thoracic Surgery (Cardiothoracic Vascular Surgery)
DX: Z01.812 Encounter for preprocedural laboratory examination (principal); Z20.822 Contact with and (suspected) exposure to COVID-19
CPT/HCPCS: 80048; 85027; 86850; 86900; 86901; U0003; U0005

== ENCOUNTER 2020-12-09 14:46 | Emergency (ER) | payer OTHER ==
[2020-12-09 15:57] LABS: #Eosinphils 0.2 thou/uL (0.0-0.7); #Lymphocytes 2.2 thou/uL (1.20-3.40); #Monocytes 0.9 thou/uL (0.11-0.59); #Neutrophils 10.3 thou/uL (1.40-6.50); %Basophils 0.2 % (0.0-1.0); %Eosinophils 1.8 % (0.0-10.0); %Monocytes 6.8 % (0.0-10.0); %Neutrophils 75.2 % (42.0-75.0); Hemoglobin 16.2 g/dL (14.0-18.0); Mean Corpuscular HGB CONC 32.1 g/dL (32.0-36.0); Mean Corpuscular Hemoglobin 28.7 pg (27.0-31.0); Mean Corpuscular Volume 89.4 fL (78.0-98.0); Mean Platelet Volume 7.4 fL (7.4-10.4); Platelet Count 294 thou/uL (130-400); RBC Distribution Width 13.6 % (11.5-14.5); Red Blood Cell (RBC) Count 5.63 mill/uL (4.70-6.10); White Blood Cell (WBC) Count 13.7 thou/uL (4.8-10.8)
[2020-12-09 16:24] LABS: ALT (SGPT) 40 U/L (8-55); AST (SGOT) 27 U/L (5-34); Albumin 4.1 g/dL (3.5-5.0); Alkaline Phosphatase 153 U/L (40-110); Anion Gap 16 mmol/L (10-20); BUN (Urea Nitrogen) 21 mg/dL (8.4-25.7); Bilirubin, Total 0.5 mg/dL (0.2-1.2); Calc. Creatinine Clearance 0 mL/min (70-130); Calcium 10.2 mg/dL (7.8-10.44); Carbon Dioxide 22 mmol/L (22-29); Chloride 103 mmol/L (98-107); Globulin 3.8 g/dL (2.4-3.5); Glucose 161 mg/dL (70-105); Potassium 4.3 mmol/L (3.5-5.1); Protein, Total 7.9 g/dL (6.0-8.3); Sodium 137 mmol/L (136-145)
[2020-12-09] MEDS ORDERED: Ketorolac Tromethamine 30 MG/ML VIAL ONE (17:58)
[2020-12-10 08:03] LABS: SARS-CoV-2 PCR by NAA Not Detected (NotDetected)
== END 2020-12-09 18:00 | disposition home or self-care (01) ==
LOC: ERS 14:46
DX: U07.1 COVID-19 (principal); R07.89 Other chest pain; E78.5 Hyperlipidemia, unspecified; E78.00 Pure hypercholesterolemia, unspecified; I10 Essential (primary) hypertension; F17.210 Nicotine dependence, cigarettes, uncomplicated; Z79.82 Long term (current) use of aspirin; Z79.899 Other long term (current) drug therapy
CPT/HCPCS: 36415; 71045; 80053; 84484; 85025; 93005; 96372; J1885; U0003; U0005

== ENCOUNTER 2021-05-12 17:00 | Outpatient (CLI) | payer OTHER | END 2021-05-12 17:01 | disposition home or self-care (01) | LOC: SLEEPLAB 17:00 | PROVIDERS: ATTEND Internal Medicine | DX: G47.33 Obstructive sleep apnea (adult) (pediatric) (principal); I25.10 Atherosclerotic heart disease of native coronary artery without angina pectoris; K21.9 Gastro-esophageal reflux disease without esophagitis; I10 Essential (primary) hypertension; E66.9 Obesity, unspecified; Z68.41 Body mass index [BMI] 40.0-44.9, adult | CPT/HCPCS: 95806 ==

== ENCOUNTER 2021-06-30 17:00 | Outpatient (CLI) | payer OTHER | END 2021-06-30 17:01 | disposition home or self-care (01) | LOC: SLEEPLAB 17:00 | PROVIDERS: ATTEND Internal Medicine | DX: G47.33 Obstructive sleep apnea (adult) (pediatric) (principal); R06.83 Snoring; G47.10 Hypersomnia, unspecified; E66.9 Obesity, unspecified; Z68.41 Body mass index [BMI] 40.0-44.9, adult | CPT/HCPCS: 95811 ==

== ENCOUNTER 2021-08-11 08:17 | Outpatient (CLI) | payer OTHER ==
[2021-08-11 09:02] LABS: Hemoglobin 16.6 g/dL (13.5-17.5); Mean Corpuscular HGB CONC 32.9 g/dL (32.0-36.0); Mean Corpuscular Hemoglobin 29.1 pg (27.0-33.0); Mean Corpuscular Volume 88.4 fl (81.2-95.1); Mean Platelet Volume 10.4 fl (7.4-10.4); Platelet Count 259 10x3/uL (150-450); RBC Distribution Width 14.8 % (11.5-14.5); White Blood Cell (WBC) Count 10.4 10x3/uL (3.5-10.5)
[2021-08-11 09:22] LABS: Anion Gap 17 mmol/L (10-20); BUN (Urea Nitrogen) 37 mg/dL (8.4-25.7); Calc. Creatinine Clearance 0 mL/min (70-130); Calcium 9.8 mg/dL (7.8-10.44); Carbon Dioxide 24 mmol/L (22-29); Chloride 99 mmol/L (98-107); Glucose 201 mg/dL (70-105); Potassium 4.5 mmol/L (3.5-5.1); Sodium 135 mmol/L (136-145)
[2021-08-11 20:28] LABS: SARS-CoV-2 PCR by NAA Not Detected (NotDetected)
== END 2021-08-11 08:18 | disposition home or self-care (01) ==
LOC: LABBT 08:17
PROVIDERS: ATTEND Thoracic Surgery (Cardiothoracic Vascular Surgery)
DX: Z01.818 Encounter for other preprocedural examination (principal); I73.9 Peripheral vascular disease, unspecified; Z20.822 Contact with and (suspected) exposure to COVID-19
CPT/HCPCS: 71046; 80048; 85027; 86850; 86900; 86901; 93005; 93010; U0003; U0005

== ENCOUNTER 2022-09-16 09:00 | Outpatient (CLI) | payer OTHER ==
[2022-09-16 09:46] LABS: #Basophils 0.1 10x3/uL (0.0-0.2); #Eosinphils 0.3 10x3/uL (0.0-0.5); #Monocytes 0.9 10x3/uL (0.0-1.1); #Neutrophils 9.8 10x3/uL (1.5-8.4); %Basophils 0.5 % (0.0-2.0); %Lymphocytes 18.7 % (18.0-47.0); %Monocytes 6.7 % (0.0-10.0); %Neutrophils 71.7 % (40.0-75.0); Hemoglobin 17.3 g/dL (13.5-17.5); Mean Corpuscular HGB CONC 33.4 g/dL (32.0-36.0); Mean Corpuscular Hemoglobin 28.9 pg (27.0-33.0); Mean Corpuscular Volume 86.6 fl (81.2-95.1); Mean Platelet Volume 9.7 fl (7.4-10.4); Platelet Count 295 10x3/uL (150-450); RBC Distribution Width 14.3 % (11.5-14.5); Red Blood Cell (RBC) Count 5.98 10x6/uL (4.32-5.72); White Blood Cell (WBC) Count 13.7 10x3/uL (3.5-10.5)
[2022-09-16 10:28] LABS: ALT (SGPT) 48 U/L (8-55); AST (SGOT) 38 U/L (5-34); Albumin 4.6 g/dL (3.5-5.0); Alkaline Phosphatase 111 U/L (40-110); Anion Gap 17 mmol/L (10-20); BUN (Urea Nitrogen) 24 mg/dL (8.4-25.7); Bilirubin, Total 0.6 mg/dL (0.2-1.2); Calc. Creatinine Clearance 0 mL/min (70-130); Calcium 10.2 mg/dL (7.8-10.44); Carbon Dioxide 24 mmol/L (22-29); Chloride 103 mmol/L (98-107); Estimated GFR 80; Globulin 3.5 g/dL (2.4-3.5); Glucose 93 mg/dL (70-105); Potassium 4.1 mmol/L (3.5-5.1); Protein, Total 8.1 g/dL (6.0-8.3); Sodium 140 mmol/L (136-145)
== END 2022-09-16 09:01 | disposition home or self-care (01) ==
LOC: LABBT 09:00
PROVIDERS: ATTEND Surgery
DX: Z01.818 Encounter for other preprocedural examination (principal); K43.2 Incisional hernia without obstruction or gangrene; K42.9 Umbilical hernia without obstruction or gangrene
CPT/HCPCS: 80053; 85025; 93005; 93010

== ENCOUNTER 2022-11-11 08:32 | Outpatient (CLI) | payer OTHER ==
[2022-11-11 09:19] LABS: #Basophils 0.1 10x3/uL (0.0-0.2); #Eosinphils 0.3 10x3/uL (0.0-0.5); #Monocytes 0.9 10x3/uL (0.0-1.1); #Neutrophils 9.4 10x3/uL (1.5-8.4); %Basophils 0.6 % (0.0-2.0); %Eosinophils 2.2 % (0.0-6.0); %Lymphocytes 17.1 % (18.0-47.0); %Monocytes 6.6 % (0.0-10.0); Hematocrit 51.4 % (38.8-50.0); Hemoglobin 17.2 g/dL (13.5-17.5); Mean Corpuscular HGB CONC 33.5 g/dL (32.0-36.0); Mean Corpuscular Hemoglobin 29.4 pg (27.0-33.0); Mean Corpuscular Volume 87.7 fl (81.2-95.1); Platelet Count 282 10x3/uL (150-450); RBC Distribution Width 14.3 % (11.5-14.5); Red Blood Cell (RBC) Count 5.86 10x6/uL (4.32-5.72); White Blood Cell (WBC) Count 12.9 10x3/uL (3.5-10.5)
[2022-11-11 09:23] LABS: ALT (SGPT) 46 U/L (8-55); AST (SGOT) 33 U/L (5-34); Albumin 4.6 g/dL (3.5-5.0); Alkaline Phosphatase 116 U/L (40-110); Anion Gap 18 mmol/L (10-20); BUN (Urea Nitrogen) 24 mg/dL (8.4-25.7); Bilirubin, Total 0.6 mg/dL (0.2-1.2); Calc. Creatinine Clearance 0 mL/min (70-130); Calcium 9.5 mg/dL (7.8-10.44); Carbon Dioxide 23 mmol/L (22-29); Chloride 104 mmol/L (98-107); Estimated GFR 90; Globulin 3.3 g/dL (2.4-3.5); Glucose 138 mg/dL (70-105); Potassium 3.6 mmol/L (3.5-5.1); Protein, Total 7.9 g/dL (6.0-8.3); Sodium 141 mmol/L (136-145)
== END 2022-11-11 08:33 | disposition home or self-care (01) ==
LOC: LABBT 08:32
PROVIDERS: ATTEND Surgery
DX: Z01.818 Encounter for other preprocedural examination (principal)
CPT/HCPCS: 80053; 85025; 93005; 93010

== ENCOUNTER 2022-11-13 07:51 | Day surgery (SDC) | payer OTHER ==
[2022-11-11 08:44] VITALS: BMI 35.4
[2022-11-13] MEDS ORDERED: SUGAMMADEX SODIUM 200 MG/2 ML VIAL ONE (08:35)
[2022-11-13] MEDS ORDERED: fentaNYL PF 100 MCG/2 ML SYRINGE ONE (08:35)
[2022-11-13] MEDS ORDERED: Dexmedetomidine 200 MCG/2 ML VIAL ONE (08:35)
[2022-11-13] MEDS ORDERED: Bupivacaine 0.25% HCL 30 ML VIAL ONE (09:19)
[2022-11-13] MEDS ORDERED: EPINEPHrine 1 MG/ML AMP ONE (09:19)
== END 2022-11-13 09:46 | disposition home or self-care (01) ==
LOC: SDC 07:51
PROVIDERS: ATTEND Surgery
DX: K43.9 Ventral hernia without obstruction or gangrene (principal); K42.9 Umbilical hernia without obstruction or gangrene; F17.210 Nicotine dependence, cigarettes, uncomplicated; I25.10 Atherosclerotic heart disease of native coronary artery without angina pectoris; I10 Essential (primary) hypertension; E78.5 Hyperlipidemia, unspecified; E07.9 Disorder of thyroid, unspecified; E11.9 Type 2 diabetes mellitus without complications; Z79.82 Long term (current) use of aspirin; Z79.899 Other long term (current) drug therapy; Z79.890 Hormone replacement therapy; Z79.84 Long term (current) use of oral hypoglycemic drugs; Z53.8 Procedure and treatment not carried out for other reasons
CPT/HCPCS: J0171; S0020

== ENCOUNTER 2023-08-24 06:33 | Inpatient (IN) | payer OTHER ==
[2023-08-24] MEDS ORDERED: Bupivacaine PF 0.5% 30 ML VIAL ONE (06:36)
[2023-08-24] MEDS ORDERED: Heparin 5,000 UNITS/ML VIAL ONE (06:36)
[2023-08-24] MEDS ORDERED: EPINEPHrine 1 MG/ML VIAL ONE (06:36)
[2023-08-24] MEDS ORDERED: Midazolam HCl 2 mg/2 ml Vial ONE (07:19)
[2023-08-24] MEDS ORDERED: Lidocaine 1% MPF 2 ML VIAL ONE (07:19)
[2023-08-24] MEDS ORDERED: Sodium Chloride 0.9% 100 ML ONE (08:01)
[2023-08-24] MEDS ORDERED: CEFAZOLIN 2 GM VIAL ONE (08:01)
[2023-08-24] MEDS ORDERED: fentaNYL PF 100 MCG/2 ML SYRINGE ONE (08:02)
[2023-08-24] MEDS ORDERED: PROPOFOL 20 ML ONE (08:02)
[2023-08-24] MEDS ORDERED: Lidocaine 2% PF 5 ML VIAL ONE (08:02)
[2023-08-24] MEDS ORDERED: Rocuronium Bromide 10 MG/ML (10ML VIAL) ONE (08:02)
[2023-08-24] MEDS ORDERED: Phenylephrine 10 MG/ML VIAL ONE (08:03)
[2023-08-24 08:12] LABS: #Basophils 0.05 10x3/uL (0.0-0.2); %Basophils 0.6 % (0.0-1.0); %Lymphocytes 23.1 % (21.0-51.0); %Monocytes 8.9 % (0.0-10.0); %Neutrophils 63.2 % (42.0-75.0); Hematocrit 43.8 % (42.0-52.0); Hemoglobin 14.7 g/dL (14.0-18.0); Mean Corpuscular HGB CONC 33.6 g/dL (32.0-36.0); Mean Corpuscular Volume 86.4 fL (78.0-98.0); Mean Platelet Volume 9.9 fL (7.4-10.4); Platelet Count 206 10x3/uL (130-400); RBC Distribution Width 14.4 % (11.5-14.5); Red Blood Cell (RBC) Count 5.07 mill/uL (4.70-6.10)
[2023-08-24] MEDS ORDERED: Glycopyrrolate 0.2 MG/ML 5 ML SYRINGE ONE (08:20)
[2023-08-24 08:25] LABS: ALT (SGPT) 12 U/L (8-55); AST (SGOT) 16 U/L (5-34); Albumin 3.3 g/dL (3.5-5.0); Alkaline Phosphatase 90 U/L (40-110); Anion Gap 13 mmol/L (10-20); BUN (Urea Nitrogen) 18 mg/dL (8.4-25.7); Bilirubin, Direct 0.1 mg/dL (0.1-0.3); Bilirubin, Total 0.4 mg/dL (0.2-1.2); Calc. Creatinine Clearance 124 mL/min (70-130); Carbon Dioxide 23 mmol/L (22-29); Chloride 109 mmol/L (98-107); Estimated GFR 102; Glucose 106 mg/dL (70-105); Potassium 3.8 mmol/L (3.5-5.1); Protein, Total 6.7 g/dL (6.0-8.3); Prothrombin Time 13.5 sec (12.0-14.7); Sodium 141 mmol/L (136-145)
[2023-08-24 08:26] LABS: PTT 47.9 sec (22.9-36.1)
[2023-08-24] MEDS ORDERED: Heparin 10,000 UNITS/ 10 ML VIAL ONE (08:43)
[2023-08-24] MEDS ORDERED: ePHEDrine Sulfate 50 MG/10 ML VIAL ONE ×2 (08:43→09:31)
[2023-08-24] MEDS ORDERED: Protamine Sulfate 50 MG/5 ML VIAL ONE (08:59)
[2023-08-24] MEDS ORDERED: Promethazine HCl 25 MG/ML VIAL IM PRN ×2 (09:01→10:04)
[2023-08-24] MEDS ORDERED: Ondansetron HCl/PF 4 MG/2 ML Vial IVP PRN (09:01)
[2023-08-24] MEDS ORDERED: SUGAMMADEX SODIUM 200 MG/2 ML VIAL ONE (09:10)
[2023-08-24] MEDS ORDERED: Phenylephrine 40 MG in Sodium Chloride 0.9% 250 ML 250 ML IVPB PRN (10:04)
[2023-08-24] MEDS ORDERED: Ipratropium/Albuterol 3 ML NEB NEB PRN (10:04)
[2023-08-24] MEDS ORDERED: Nitroglycerin 50 MG/250 ML BOT 250 ML IVPB PRN (10:04)
[2023-08-24] MEDS ORDERED: Insulin Regular 300 UNITS/3 ML VIAL SC PRN (10:04)
[2023-08-24] MEDS ORDERED: hydrALAZINE 20 MG/ML VIAL SLOW IVP PRN (10:04)
[2023-08-24] MEDS ORDERED: Insulin Regular, Human 100 UNIT/ML 10 ML VIAL SC PRN (10:19)
[2023-08-24] MEDS ORDERED: fentaNYL 50 mcg/mL 1 mL Vial ONE (10:22)
[2023-08-24] MEDS: Sodium Chloride 0.9% 1,000 ML IV SCH (11:12)
[2023-08-24 11:46] VITALS: BMI 34.7
[2023-08-24] MEDS: Ipratropium/Albuterol 3 ML NEB NEB SCH (12:51)
[2023-08-24] MEDS: traMADol HCl 50 MG TAB PO PRN (13:36)
[2023-08-24] MEDS: CEFAZOLIN 2 GM in Sodium Chloride 0.9% 100 ML IVPB SCH (13:44)
[2023-08-24] MEDS: fentaNYL 50 mcg/mL 1 mL Vial SLOW IVP PRN (14:21)
[2023-08-24] MEDS: Ondansetron PF 4 MG/2 ML Vial IVP PRN (15:43)
[2023-08-24] MEDS: metFORMIN 500 MG TAB PO SCH (16:28)
[2023-08-24] MEDS: Icosapent Ethyl 1 GM CAPSULE FS SCH (16:28)
[2023-08-24] MEDS ORDERED: Non-Formulary Item 1 EACH (Icosapent Ethyl 1 GM Capsule) PO SCH (17:00)
[2023-08-24] MEDS: Atorvastatin Calcium 40 MG TAB PO SCH (20:14)
[2023-08-24] MEDS: Gemfibrozil 600 MG TAB PO SCH (20:14)
[2023-08-24] MEDS: Amlodipine 10 MG TAB PO SCH (20:21)
[2023-08-24] MEDS: Metoprolol Tartrate 50 MG TAB PO SCH (20:22)
[2023-08-24] MEDS ORDERED: Non-Formulary Item 1 EACH (Atorvastatin Calcium [Atorvastatin Calcium] 80 MG Tablet) PO SCH (21:00)
[2023-08-24] MEDS ORDERED: Amlodipine 5 MG TAB PO SCH (21:00)
[2023-08-24] MEDS: Acetaminophen 325 MG TAB PO PRN (21:15)
[2023-08-25] MEDS ORDERED: Acetaminophen/Codeine 30-300mg Tablet PO PRN (05:18)
[2023-08-25 07:15] VITALS: TEMP 96
[2023-08-25] MEDS ORDERED: Pantoprazole DR 40 MG TAB PO SCH (09:00)
[2023-08-25] MEDS ORDERED: Tamsulosin HCl 0.4 MG CAP PO SCH (09:00)
[2023-08-25] MEDS ORDERED: Multivitamin W/ Minerals 1 TAB PO SCH (09:00)
[2023-08-25] MEDS ORDERED: Lisinopril 10 MG TAB PO SCH (09:00)
[2023-08-25] MEDS ORDERED: Aspirin 81 mg Enteric Coated Tablet PO SCH (09:00)
[2023-08-25] MEDS ORDERED: Non-Formulary Item 1 EACH (Omeprazole [Omeprazole] 40 MG Capsule.Dr) PO SCH (09:00)
[2023-08-25] MEDS ORDERED: Levothyroxine Sodium 25 MCG TAB PO SCH (09:00)
[2023-08-25] MEDS ORDERED: Lisinopril 20 MG TAB PO SCH (09:00)
[2023-08-25] MEDS ORDERED: Escitalopram Oxalate 10 mg Tablet PO SCH (09:00)
[2023-08-25] MEDS ORDERED: [UNRECOGNIZED DRUG - REMARK] PO SCH (09:00)
[2023-08-25] MEDS ORDERED: Clopidogrel Bisulfate 75 MG TAB PO SCH (09:00)
== END 2023-08-25 07:30 | disposition home or self-care (01) | DRG 39 ==
LOC: SURG A 06:33 → CCU 10:36
PROVIDERS: ADMIT Thoracic Surgery (Cardiothoracic Vascular Surgery); ATTEND Thoracic Surgery (Cardiothoracic Vascular Surgery)
PROC: 03CJ0ZZ Extirpation of Matter from Left Common Carotid Artery, Open Approach (ICD-10-PCS; principal; 2023-08-24)
PROC: 03CN0ZZ Extirpation of Matter from Left External Carotid Artery, Open Approach (ICD-10-PCS; 2023-08-24)
PROC: 3E033XZ Introduction of Vasopressor into Peripheral Vein, Percutaneous Approach (ICD-10-PCS; 2023-08-24)
DX: I65.22 Occlusion and stenosis of left carotid artery (principal); N52.01 Erectile dysfunction due to arterial insufficiency; E66.01 Morbid (severe) obesity due to excess calories; E11.51 Type 2 diabetes mellitus with diabetic peripheral angiopathy without gangrene; G47.33 Obstructive sleep apnea (adult) (pediatric); K43.2 Incisional hernia without obstruction or gangrene; K42.9 Umbilical hernia without obstruction or gangrene; K21.9 Gastro-esophageal reflux disease without esophagitis; N40.1 Benign prostatic hyperplasia with lower urinary tract symptoms; I65.23 Occlusion and stenosis of bilateral carotid arteries; E78.00 Pure hypercholesterolemia, unspecified; I10 Essential (primary) hypertension; Z98.890 Other specified postprocedural states; Z79.82 Long term (current) use of aspirin; Z79.899 Other long term (current) drug therapy
CPT/HCPCS: 36416; 80048; 80076; 85025; 85610; 85730; 94640; C1713; J0171; J0665; J1642; J1644; J2001; J2250; J2371; J2405; J2704; J2720; J3010; J3490; J7050; J7620

== ENCOUNTER 2023-09-20 09:36 | Inpatient (IN) | payer OTHER ==
[2023-09-20 10:48] LABS: #Basophils 0.04 10x3/uL (0.0-0.2); %Basophils 0.3 % (0.0-1.0); %Eosinophils 2.8 % (0.0-10.0); %Lymphocytes 15.5 % (21.0-51.0); %Monocytes 6.2 % (0.0-10.0); %Neutrophils 74.6 % (42.0-75.0); Hemoglobin 14.5 g/dL (14.0-18.0); Mean Corpuscular Hemoglobin 29.2 pg (27.0-31.0); Mean Corpuscular Volume 88.5 fL (78.0-98.0); Mean Platelet Volume 9.6 fL (7.4-10.4); Platelet Count 288 10x3/uL (130-400); Red Blood Cell (RBC) Count 4.97 mill/uL (4.70-6.10)
[2023-09-20 11:14] LABS: ALT (SGPT) 12 U/L (8-55); AST (SGOT) 15 U/L (5-34); Albumin 3.4 g/dL (3.5-5.0); Alkaline Phosphatase 103 U/L (40-110); Anion Gap 13 mmol/L (10-20); BUN (Urea Nitrogen) 21 mg/dL (8.4-25.7); Bilirubin, Total 0.4 mg/dL (0.2-1.2); Calc. Creatinine Clearance 0 mL/min (70-130); Calcium 9.2 mg/dL (7.8-10.44); Carbon Dioxide 21 mmol/L (22-29); Estimated GFR 102; Globulin 3.9 g/dL (2.4-3.5); Glucose 103 mg/dL (70-105); Potassium 4.1 mmol/L (3.5-5.1); Protein, Total 7.3 g/dL (6.0-8.3); Sodium 139 mmol/L (136-145)
[2023-09-20] MEDS ORDERED: Morphine 4 MG/ML VIAL ONE (11:19)
[2023-09-20] MEDS ORDERED: Ondansetron PF 4 MG/2 ML Vial ONE ×2 (11:19→13:08)
[2023-09-20 11:26] LABS: Chloride 109 mmol/L (98-107)
[2023-09-20] MEDS ORDERED: Cefepime 2 GM VIAL ONE (11:44)
[2023-09-20] MEDS ORDERED: Iopamidol-370 76% 500 ML MDV (1 ML CHARGE) ONE (12:56)
[2023-09-20] MEDS ORDERED: SUCCINYLCHOLINE/SOD CL,ISO/PF 200 MG/10 ML SYRINGE FS ONE (13:05)
[2023-09-20] MEDS ORDERED: Rocuronium Bromide 10 MG/ML (10ML VIAL) ONE (13:05)
[2023-09-20] MEDS ORDERED: EPINEPHrine 1 MG/ML VIAL ONE (13:06)
[2023-09-20] MEDS ORDERED: Bupivacaine PF 0.5% 30 ML VIAL ONE (13:06)
[2023-09-20] MEDS ORDERED: PROPOFOL 20 ML ONE (13:07)
[2023-09-20] MEDS ORDERED: fentaNYL PF 100 MCG/2 ML SYRINGE ONE (13:07)
[2023-09-20] MEDS ORDERED: Protamine Sulfate 50 MG/5 ML VIAL ONE (13:08)
[2023-09-20] MEDS ORDERED: Heparin 5,000 UNITS/ML VIAL ONE (13:08)
[2023-09-20] MEDS ORDERED: PHENYLEPHRINE-NS 100 MCG/ML 10 ML SYRINGE ONE (13:09)
[2023-09-20] MEDS ORDERED: NEOSTIGMINE 3 MG/3 ML SYRINGE ONE (13:09)
[2023-09-20] MEDS ORDERED: Glycopyrrolate 0.2 MG/ML 5 ML SYRINGE ONE (13:09)
[2023-09-20] MEDS ORDERED: Lidocaine 1% PF 5 ML VIAL ONE (13:51)
[2023-09-20 16:03] VITALS: BMI 35.2
[2023-09-20] MEDS ORDERED: Dextrose 50% Abboject 50 ML SYRINGE SLOW IVP PRN (16:12)
[2023-09-20] MEDS ORDERED: Ondansetron ODT 4 MG TAB PO PRN (16:12)
[2023-09-20] MEDS ORDERED: HumaLOG 300 UNITS/3 ML VIAL SC PRN (16:12)
[2023-09-20] MEDS ORDERED: Dextrose 5% in Water 1,000 ML IV PRN (16:12)
[2023-09-20] MEDS ORDERED: Glucagon 1 MG/ML KIT IM PRN (16:12)
[2023-09-20] MEDS: Icosapent Ethyl 1 GM CAPSULE PO SCH (17:24)
[2023-09-20] MEDS: metFORMIN 500 MG TAB PO SCH (17:24)
[2023-09-20] MEDS: Acetaminophen/Codeine 30-300mg Tablet PO PRN (17:24)
[2023-09-20] MEDS: Sodium Chloride 0.9% 1,000 ML IV SCH (18:07)
[2023-09-20] MEDS: Gemfibrozil 600 MG TAB PO SCH (20:15)
[2023-09-20] MEDS: Sulfameth/Trimethoprim DS 800-160mg TAB PO SCH (20:16)
[2023-09-20] MEDS: Metoprolol Tartrate 50 MG TAB PO SCH (20:16)
[2023-09-20] MEDS: Amlodipine 10 MG TAB PO SCH (20:16)
[2023-09-20] MEDS: Atorvastatin Calcium 40 MG TAB PO SCH (20:17)
[2023-09-21] MEDS: Levothyroxine Sodium 25 MCG TAB PO SCH (06:27)
[2023-09-21] MEDS: Lisinopril 20 MG TAB PO SCH (09:49)
[2023-09-21] MEDS: Aspirin 81 mg Enteric Coated Tablet PO SCH (09:49)
[2023-09-21] MEDS: Tamsulosin HCl 0.4 MG CAP PO SCH (09:53)
[2023-09-21] MEDS: Clopidogrel Bisulfate 75 MG TAB PO SCH (09:53)
[2023-09-21] MEDS: Pantoprazole DR 40 MG TAB PO SCH (09:53)
[2023-09-21] MEDS: Escitalopram Oxalate 10 mg Tablet PO SCH (09:53)
[2023-09-21 10:34] VITALS: BMI 35.2
[2023-09-21] MEDS: Ferrex 150 Plus (iron poly cmplx) PO SCH (12:01)
[2023-09-22 07:54] VITALS: TEMP 97.6
[2023-09-22 10:08] VITALS: BP 125/72
== END 2023-09-22 10:26 | disposition home or self-care (01) | DRG 863 ==
LOC: ERS 09:36 → SDC 12:07 → 2NO 16:10
PROVIDERS: ADMIT Thoracic Surgery (Cardiothoracic Vascular Surgery); ATTEND Thoracic Surgery (Cardiothoracic Vascular Surgery)
PROC: 0H94XZZ Drainage of Neck Skin, External Approach (ICD-10-PCS; principal; 2023-09-20)
DX: T81.49XA Infection following a procedure, other surgical site, initial encounter (principal); L76.32 Postprocedural hematoma of skin and subcutaneous tissue following other procedure; E78.00 Pure hypercholesterolemia, unspecified; I10 Essential (primary) hypertension; I25.2 Old myocardial infarction; Z95.1 Presence of aortocoronary bypass graft; Z98.890 Other specified postprocedural states; F17.210 Nicotine dependence, cigarettes, uncomplicated
CPT/HCPCS: 36415; 36416; 70491; 80053; 85025; 87070; 87077; 87186; 87205; 96374; 96375; J0171; J0665; J0692; J1644; J2270; J2405; J2704; J2720; Q9967

== ENCOUNTER 2024-02-10 08:02 | Outpatient (CLI) | payer OTHER | END 2024-02-10 08:03 | disposition home or self-care (01) | LOC: CT 08:02 | PROVIDERS: ATTEND Thoracic Surgery (Cardiothoracic Vascular Surgery) | DX: I73.9 Peripheral vascular disease, unspecified (principal) | CPT/HCPCS: 36415; 75635; 82565 ==

== ENCOUNTER 2024-03-16 08:36 | Emergency (ER) | payer OTHER ==
[2024-03-16] MEDS ORDERED: Ketorolac Tromethamine 30 MG (1 mL) VIAL ONE (10:03)
[2024-03-16] MEDS ORDERED: traMADol HCl 50 MG TAB ONE (10:03)
== END 2024-03-16 10:16 | disposition home or self-care (01) ==
LOC: ERS 08:36
DX: M54.41 Lumbago with sciatica, right side (principal); E78.00 Pure hypercholesterolemia, unspecified; I10 Essential (primary) hypertension; I25.2 Old myocardial infarction; E11.9 Type 2 diabetes mellitus without complications; B19.20 Unspecified viral hepatitis C without hepatic coma; F17.210 Nicotine dependence, cigarettes, uncomplicated; Z55.6 Problems related to health literacy; Z79.82 Long term (current) use of aspirin; Z79.899 Other long term (current) drug therapy
CPT/HCPCS: 96372; 99283; J1885

== ENCOUNTER 2025-01-20 13:46 | Emergency (ER) | payer MEDICAID, OTHER ==
[2025-01-20 14:24] LABS: #Basophils 0.04 10x3/uL (0.0-0.2); #Eosinophils 0.10 10x3/uL (0.0-0.7); #Monocytes 0.51 10x3/uL (0.11-0.59); #Neutrophils 4.98 10x3/uL (1.40-6.50); %Basophils 0.5 % (0.0-1.0); %Eosinophils 1.4 % (0.0-10.0); %Lymphocytes 23.3 % (21.0-51.0); %Monocytes 6.9 % (0.0-10.0); %Neutrophils 67.6 % (42.0-75.0); Hematocrit 44.7 % (42.0-52.0); Hemoglobin 15.9 g/dL (14.0-18.0); Mean Corpuscular Hemoglobin 30.6 pg (27.0-31.0); Mean Corpuscular Volume 86.1 fL (78.0-98.0); Platelet Count 192 10x3/uL (130-400); Red Blood Cell (RBC) Count 5.19 mill/uL (4.70-6.10); White Blood Cell (WBC) Count 7.37 10x3/uL (4.8-10.8)
[2025-01-20 14:32] LABS: Actual Bicarbonate (HCO3v) 21.0 mEq/L (22-28); Base Excess -3.7 mEq/L (-2.0 to +3.0); Calcium, Ionized (venous) 1.20 mmol/L (1.16-1.32); Chloride (VBG) 95 mmol/L (98-106); Hematocrit-VBG 49 % (42.0-52.0); Hemoglobin (Hb) 16.7 g/dL (13.1-17.2); Potassium (VBG) 4.49 mmol/L (3.70-5.30); Sodium 132 mmol/L (133-146)
[2025-01-20 14:54] LABS: ALT (SGPT) 52 U/L (Less than 45); AST (SGOT) 30 U/L (11-34); Albumin 4.2 g/dL (3.1-4.5); Alkaline Phosphatase 176 U/L (40-110); Anion Gap 16 mmol/L (10-20); BUN (Urea Nitrogen) 21 mg/dL (8.4-25.7); Bilirubin, Total 1.0 mg/dL (0.3-1.2); Calc. Creatinine Clearance 0 mL/min (70-130); Calcium 9.9 mg/dL (7.8-10.44); Carbon Dioxide 22 mmol/L (23-31); Chloride 95 mmol/L (98-107); Globulin 3.8 g/dL (2.4-3.5); Glucose 545 mg/dL (80-115); Lipase 29 U/L (8-78); Magnesium 1.8 mg/dL (1.6-2.6); Potassium 4.4 mmol/L (3.5-5.1); Sodium 129 mmol/L (136-145)
[2025-01-20 15:24] LABS: CAUTI Indications for Culture Pelvic or flank pain; Glucose, Urine (Dipstick) Greater than 1000 mg/dL (Negative); Leukocyte 250 Leu/uL (Negative); Protein, Urine (Dipstick) Negative (Neg-Trace); Specific Gravity, Urine 1.035 (1.002-1.036); Yeast-Budding 1+ HPF (None Seen)
[2025-01-20 15:34] LABS: Bacteria/HPF 1+ HPF (None Seen); RBC/HPF 0-3 HPF (0-3)
[2025-01-20 15:36] LABS: Urine Culture Reflex No No
== END 2025-01-20 17:05 | disposition home or self-care (01) ==
LOC: ERS 13:46
DX: E11.65 Type 2 diabetes mellitus with hyperglycemia (principal); I25.2 Old myocardial infarction; I10 Essential (primary) hypertension; F17.200 Nicotine dependence, unspecified, uncomplicated; E78.5 Hyperlipidemia, unspecified; Z79.82 Long term (current) use of aspirin; Z79.899 Other long term (current) drug therapy
CPT/HCPCS: 36416; 71045; 81001; 82010; 82805; 83690; 83735; 84100; 84484; 93005; 94760; 96361; 96374; J1815